=== PATIENT | male | born 1935 | race Caucasian/White ===

== ENCOUNTER 2017-02-24 14:28 | Emergency (ER) | payer MEDICARE ==
[2017-02-24] MEDS ORDERED: Aspirin Low Dose CHEW TAB* 81 MG PO ONE (15:26)
[2017-02-24] MEDS ORDERED: Labetalol IV* 5 MG/ML 20 ML VIAL IV PUSH ONE (15:26)
[2017-02-24 15:44] LABS: Hematocrit 44 % (42-52); Hemoglobin 14.3 g/dl (14.0-18.0); Mean Corpuscular HGB Conc 33 g/dl (31-36); Mean Corpuscular Hemoglobin 29 pg (27-31); Mean Corpuscular Volume 88 fL (80-94); Mean Platelet Volume 10 um3 (7.4-10.4); Red Blood Count 4.96 10^6/ul (4.0-5.4); Red Cell Distribution Width 14 % (10.5-15); White Blood Count 6.5 10^3/ul (3.5-10.8)
--- NOTE | 2017-02-24 16:02 | RAD ---
INDICATION: Hypertension. COMPARISON: Comparison is made with a prior chest x-ray study from October 04, 2015. TECHNIQUE: Dual-energy PA and lateral views of the chest were obtained. FINDINGS: The heart is within normal limits in size. Mediastinal and hilar contours appear within normal limits. The lungs are clear. There is flattening of the diaphragms suggestive of chronic obstructive pulmonary disease. No pleural effusion is seen. IMPRESSION: FINDINGS SUGGESTIVE OF COPD, NO EVIDENCE FOR ACUTE FINDING.
[2017-02-24 16:04] LABS: Troponin I 0.02 ng/mL (<0.04)
[2017-02-24 16:14] LABS: Albumin 3.9 g/dL (3.2-5.2); BUN/Creatinine Ratio 19.5 (8-20); Calcium 8.9 mg/dL (8.6-10.3); EGFR African American 108.3 (>60); EGFR Non-African American 84.2 (>60); Globulin 2.2 g/dL (2-4); Potassium 3.4 mmol/L (3.5-5.0); Total Bilirubin 0.7 mg/dL (0.2-1.0); Total Protein 6.1 g/dL (6.4-8.9)
[2017-02-24 16:16] LABS: TSH (Thyroid Stimulating Horm) 1.55 mcIU/mL (0.34-5.60)
[2017-02-24] MEDS ORDERED: Potassium Chlor TAB* 20 MEQ TAB.ER PO ONE (17:06)
[2017-02-24 17:07] VITALS: BP 154/68
--- NOTE | 2017-02-27 13:33 | ED ---
Soco Kenney Edward, scribed for Keyon Armendariz MD on 02/24/17 at 1520 . Hypertension - HPI Summary HPI Summary: 81 y/o male c/o elevated blood pressure - readings above 200 systolic per pt earlier today. Symptoms are not aggravated or alleviated by anything. Denies CP , SOB. Pt is asymptomatic in th ED. Pt also states he might be forgetting to take his HTN medications. - History of Current Complaint Chief Complaint: EDGeneral Stated Complaint: HIGH BLOOD PRESSURE Time Seen by Provider: 02/24/17 15:18 Hx Obtained From: Patient - Allergies/Home Medications Allergies/Adverse Reactions: Allergies Allergy/AdvReac Type Severity Reaction Status Date / Time No Known Allergies Allergy Verified 12/20/15 18:04 PMH/Surg Hx/FS Hx/Imm Hx Previously Healthy: No Endocrine/Hematology History: Denies: Hx Diabetes, Hx Thyroid Disease Cardiovascular History: Reports: Hx Hypercholesterolemia, Hx Hypertension - WELL CONTROLLED Denies: Hx Congestive Heart Failure Respiratory History: Denies: Hx Asthma, Hx Chronic Obstructive Pulmonary Disease (COPD) GI History: Reports: Hx Diverticulosis, Other GI Disorders - current GI bleed Denies: Hx Ulcer History: Denies: Hx Renal Disease Musculoskeletal History: Reports: Hx Arthritis - RIGHT THUMB Sensory History: Reports: Hx Cataracts - BILAT, Hx Contacts or Glasses, Hx Hearing Aid, Other Sensory Impairments - upper and lower dentures Opthamlomology History: Reports: Hx Cataracts - BILAT, Hx Contacts or Glasses, Other Sensory Impairments - upper and lower dentures - Surgical History Surgery Procedure, Year, and Place: cleft palate surgeries. TURP 2013. COLOVESICAL SURGERY S. 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 Denies: Hx Hepatitis, Hx Human Immunodeficiency Virus (HIV), Traveled Outside the [place] in Last 30 Days - Family History Known Family History: Negative: Cardiac Disease, Other - Negative: stroke and skin CA - Social History Alcohol Use: Daily Alcohol Amount: glass of wine/day Hx Substance Use: No Substance Use Type: Reports: None Hx Tobacco Use: Yes Smoking Status (MU): Former Smoker Length of Time of Smoking/Using Tobacco: 10 YRS Have You Smoked in the Last Year: No Review of Systems All Other Systems Reviewed And Are Negative: Yes Physical Exam - Summary Physical Exam Summary: VITAL SIGNS: Reviewed. GENERAL: Patient is a well-developed and nourished male who is lying comfortable in the stretcher. Patient is not in any acute respiratory distress. HEAD AND FACE: No signs of trauma. No ecchymosis, hematomas or skull depressions. No sinus tenderness. EYES: PERRLA, EOMI x 2, No injected conjunctiva, no nystagmus. EARS: Hearing grossly intact. Ear canals and tympanic membranes are within normal limits. MOUTH: Oropharynx within normal limits. NECK: Supple, trachea is midline, no adenopathy, no JVD, no carotid bruit, no c- spine tenderness, neck with full ROM. CHEST: Symmetric, no tenderness at palpation LUNGS: Clear to auscultation bilaterally. No wheezing or crackles. CVS: Regular rate and rhythm, S1 and S2 present, no murmurs or gallops appreciated. ABDOMEN: Soft, non-tender. No signs of distention. No rebound no guarding, and no masses palpated. Bowel sounds are normal. EXTREMITIES: FROM in all major joints, no edema, no cyanosis or clubbing. NEURO: Alert and oriented x 3. No acute neurological deficits. Speech is normal and follows commands. SKIN: Dry and warm Triage Information Reviewed: Yes Vital Signs On Initial Exam: Initial Vitals Temp Pulse Resp BP Pulse Ox 98.9 F 103 20 216/93 94 02/24/17 14:35 02/24/17 14:35 02/24/17 14:35 02/24/17 14:35 02/24/17 14:35 Vital Signs Reviewed: Yes - Will Coma Scale Coma Scale Total: 15 Diagnostics - Vital Signs Vital Signs Temp Pulse Resp BP Pulse Ox 02/24/17 15:13 210/88 02/24/17 14:35 98.9 F 103 20 216/93 94 - Laboratory Lab Results: Lab Results 02/24/17 02/24/17 02/24/17 Range/Units 15:22 15:22 15:22 WBC 6.5 (3.5-10.8) 10^3/ul RBC 4.96 (4.0-5.4) 10^6/ul Hgb 14.3 (14.0-18.0) g/dl Hct 44 (42-52) % MCV 88 (80-94) fL MCH 29 (27-31) pg MCHC 33 (31-36) g/dl RDW 14 (10.5-15) % Plt Count 178 (150-450) 10^3/ul MPV 10 (7.4-10.4) um3 Neut % (Auto) 72.5 (38-83) % Lymph % (Auto) 13.3 L (25-47) % Sutter % (Auto) 9.5 H (1-9) % Eos % (Auto) 3.5 (0-6) % Baso % (Auto) 1.2 (0-2) % Absolute Neuts (auto) 4.7 (1.5-7.7) 10^3/ul Absolute Lymphs (auto) 0.9 L (1.0-4.8) 10^3/ul Absolute Monos (auto) 0.6 (0-0.8) 10^3/ul Absolute Eos (auto) 0.2 (0-0.6) 10^3/ul Absolute Basos (auto) 0.1 (0-0.2) 10^3/ul Absolute Nucleated RBC 0 10^3/ul Nucleated RBC % 0 Sodium 142 (133-145) mmol/L Potassium 3.4 L (3.5-5.0) mmol/L Chloride 106 (101-111) mmol/L Carbon Dioxide 29 (22-32) mmol/L Anion Gap 7 (2-11) mmol/L BUN 17 (6-24) mg/dL Creatinine 0.87 (0.67-1.17) mg/dL Est GFR ( Amer) 108.3 (>60) Est GFR (Non-Af Amer) 84.2 (>60) BUN/Creatinine Ratio 19.5 (8-20) Glucose 194 H (70-100) mg/dL Lactic Acid (0.5-2.0) mmol/L Calcium 8.9 (8.6-10.3) mg/dL Total Bilirubin 0.70 (0.2-1.0) mg/dL AST 15 (13-39) U/L ALT 11 (7-52) U/L Alkaline Phosphatase 67 (34-104) U/L CK-MB (CK-2) 4.3 (0.6-6.3) ng/mL Troponin I 0.02 (<0.04) ng/mL B-Natriuretic Peptide 113 H ( - 100) pg/mL Total Protein 6.1 L (6.4-8.9) g/dL Albumin 3.9 (3.2-5.2) g/dL Globulin 2.2 (2-4) g/dL Albumin/Globulin Ratio 1.8 (1-3) TSH 1.55 (0.34-5.60) mcIU/mL 02/24/17 Range/Units 15:22 WBC (3.5-10.8) 10^3/ul RBC (4.0-5.4) 10^6/ul Hgb (14.0-18.0) g/dl Hct (42-52) % MCV (80-94) fL MCH (27-31) pg MCHC (31-36) g/dl RDW (10.5-15) % Plt Count (150-450) 10^3/ul MPV (7.4-10.4) um3 Neut % (Auto) (38-83) % Lymph % (Auto) (25-47) % Sutter % (Auto) (1-9) % Eos % (Auto) (0-6) % Baso % (Auto) (0-2) % Absolute Neuts (auto) (1.5-7.7) 10^3/ul Absolute Lymphs (auto) (1.0-4.8) 10^3/ul Absolute Monos (auto) (0-0.8) 10^3/ul Absolute Eos (auto) (0-0.6) 10^3/ul Absolute Basos (auto) (0-0.2) 10^3/ul Absolute Nucleated RBC 10^3/ul Nucleated RBC % Sodium (133-145) mmol/L Potassium (3.5-5.0) mmol/L Chloride (101-111) mmol/L Carbon Dioxide (22-32) mmol/L Anion Gap (2-11) mmol/L BUN (6-24) mg/dL Creatinine (0.67-1.17) mg/dL Est GFR ( Amer) (>60) Est GFR (Non-Af Amer) (>60) BUN/Creatinine Ratio (8-20) Glucose (70-100) mg/dL Lactic Acid 1.1 (0.5-2.0) mmol/L Calcium (8.6-10.3) mg/dL Total Bilirubin (0.2-1.0) mg/dL AST (13-39) U/L ALT (7-52) U/L Alkaline Phosphatase (34-104) U/L CK-MB (CK-2) (0.6-6.3) ng/mL Troponin I (<0.04) ng/mL B-Natriuretic Peptide ( - 100) pg/mL Total Protein (6.4-8.9) g/dL Albumin (3.2-5.2) g/dL Globulin (2-4) g/dL Albumin/Globulin Ratio (1-3) TSH (0.34-5.60) mcIU/mL Result Diagrams: 02/24/17 15:22 02/24/17 15:22 Lab Statement: Any lab studies that have been ordered have been reviewed, and results considered in the medical decision making process. - Radiology CXR Xray Interpretation: No Acute Changes - FINDINGS SUGGESTIVE OF COPD, NO EVIDENCE FOR ACUTE FINDING. Radiology Interpretation Completed By: Radiologist - EKG 1 EKG Interpretation: 15:34 - SR @ [address] ELEVATIONS Re-Evaluation - Re-Evaluation 1 Re-Evaluation Time: 16:34 Change: Improved Comment: discuss plan of care Hypertension Course/Dx - Course Assessment/Plan: 81 y/o male c/o elevated blood pressure - readings above 200 systolic per pt earlier today. Symptoms are not aggravated or alleviated by anything. Denies CP, SOB. Pt is asymptomatic in th ED. Pt also states he might be forgetting to take his HTN medications. EKG 15:34 - SR @ [address] ELEVATIONS. CXR SHOWS FINDINGS SUGGESTIVE OF COPD, NO EVIDENCE FOR ACUTE FINDING. Test results without significant abnormalities except potassium 3.4 for which the pt was given potassium chloride. Pt was given labetalol for uncontrolled hypertension. At this point the pts blood pressure was 162/81. The pt is otherwise asymptomatic. At this point I had a long discussion with the pt about compliance with medication. The pt will be d/c home with f/u with PCP. The pt is hemodynamically stable, A&Ox3. - Diagnoses Provider Diagnoses: Uncontrolled hypertension Discharge - Discharge Plan Condition: Stable Disposition: HOME Patient Education Materials: Hypertension (ED) Referrals: Gurdeep Ashton MD [Primary Care Provider] - 3 Days (PLEASE F/U IN 2-3 DAYS) The documentation as recorded by the kearaibSoco avila Edward accurately reflects the service I personally performed and the decisions made by me, Keyon Armendariz MD.
== END 2017-02-24 17:07 | disposition home or self-care (01) ==
LOC: ED 14:28
DX: I10 Essential (primary) hypertension (principal); E78.00 Pure hypercholesterolemia, unspecified; K57.90 Diverticulosis of intestine, part unspecified, without perforation or abscess without bleeding; M19.041 Primary osteoarthritis, right hand; Z87.891 Personal history of nicotine dependence
CPT/HCPCS: 36415; 71020; 80053; 82553; 83605; 83880; 84443; 84484; 85025; 93005; 96374; 99283; A9270-GY

== ENCOUNTER 2018-03-12 08:17 | Emergency (ER) | payer MEDICARE ==
[2018-03-12] MEDS ORDERED: NS 0.9% 1000 ML* 1,000 ML IV ONE (08:18)
--- NOTE | 2018-03-12 08:39 | RAD ---
HISTORY: Neurological changes/code oswald COMPARISONS: None TECHNIQUE: Multiple contiguous axial CT scans were obtained of the head without intravenous contrast. FINDINGS: HEMORRHAGE/INFARCT: There is no hemorrhage or acute infarct. MASSES/SHIFT: There is no mass or shift. EXTRA-AXIAL SPACES: There are no extra-axial fluid collections. SULCI AND VENTRICLES: There is diffuse and proportional enlargement of the sulci and ventricles. CEREBRUM: There is hypoattenuation of the periventricular and subcortical white matter. BRAINSTEM: There are no focal parenchymal abnormalities. CEREBELLUM: There is desiccation of the deep nuclei of the cerebellum. VESSELS: The vessels are grossly normal. PARANASAL SINUSES: The paranasal sinuses are clear. ORBITS: There is bilateral proptosis. BONES AND SOFT TISSUE: No bone or soft tissue abnormalities are noted. OTHER: None IMPRESSION: 1. NO ACUTE INTRACRANIAL PATHOLOGY. 2. DIFFUSE INVOLUTIONAL CHANGE WITH CHRONIC SMALL VESSEL ISCHEMIC CHANGES. 3. CALCIFICATION OF THE DEEP NUCLEI OF THE CEREBELLUM WHICH CAN BE SEEN WITH DISORDERS OF CALCIUM METABOLISM. 4. BILATERAL PROPTOSIS. PRELIMINARY FINDINGS WERE DISCUSSED WITH DR. CHACON IN THE EMERGENCY DEPARTMENT AT APPROXIMATELY 8:28 AM ON MARCH 12, 2018 .
[2018-03-12] MEDS ORDERED: Metoprolol Tartrate IV* 1 MG/ML 5 ML VIAL IV ONE (08:40)
--- NOTE | 2018-03-12 08:51 | ED ---
Neurological HPI - HPI Summary HPI Summary: Pt is an 82 y/o male brought in by EMS who presents to the ED c/o slurred speech , confusion and fall this am witnessed by [id number], Aury Caro who lives with pt, and is pt's closest relative and she called EMS. As per EMS, his last known well was 22:00 yesterday. Pt c/o right facial droop, R arm drift, confusion, and slurred speech. He fell while in the bathroom, and EMS was called 30 minutes DEBURRER STRIP. Layne De La Paz was called in the fiel. Vitals as per EMS: BP 215/143, HR 136. An EKG performed by EMS revealed AFib, and he was given 5 mg Metoprolol IV by EMS. Pt is on Rampril 20mg qd, [id number] qd, Donepezil 10mg qd Layne Restrepo was called at 8:06. Pt is not on anticoagulants or ASA. No known hx prior stroke. No known prior hx of afib. [facility] records show hx HTN and hyperlipidemia. No med for hyperlipidemia brought in by family with daily meds. Per Aurypilar Caro, pt is a full code. Pt was evaluated on EMS stretcher and taken directly to CT. CT and CTA done immediately. - History of Current Complaint Stated Complaint: LAYNE DE LA PAZ Time Seen by Provider: 03/12/18 08:18 Hx Obtained From: Patient, Family/Mineral Economist - Aury Caro, [id number] who lives with pt., EMS Onset/Duration: Sudden Onset, Started hours ago - LKW 2200 03/11/18, Still Present Timing: Constant Onset Severity: Severe Current Severity: Severe Neurological Deficit Location: Facial, RUE, RLE Pain Intensity: 0 Pain Scale Used: 0-10 Numeric Character: Motor Weakness - right, Impaired Speech, Confusion, Responsiveness Aggravating: Nothing Alleviating: Nothing Associated Signs and Symptoms: Positive: Unsteady Gait - fell this am, Confusion , Impaired Speech TPA Considered: No - LKW out of window - Additional Pertinent History Primary Care Physician: ANDREW - Allergy/Home Medications Allergies/Adverse Reactions: Allergies Allergy/AdvReac Type Severity Reaction Status Date / Time No Known Allergies Allergy Verified 12/20/15 18:04 PMH/Surg Hx/FS Hx/Imm Hx Previously Healthy: No Endocrine/Hematology History: Denies: Hx Diabetes, Hx Thyroid Disease Cardiovascular History: Reports: Hx Hypercholesterolemia, Hx Hypertension - WELL CONTROLLED Denies: Hx Congestive Heart Failure Respiratory History: Denies: Hx Asthma, Hx Chronic Obstructive Pulmonary Disease (COPD) GI History: Reports: Hx Diverticulosis, Hx Gastrointestinal Bleed Denies: Hx Ulcer History: Denies: Hx Renal Disease Musculoskeletal History: Reports: Hx Arthritis - RIGHT THUMB Sensory History: Reports: Hx Cataracts - BILAT, Hx Contacts or Glasses, Hx Hearing Aid - with pt , Other Sensory Impairments - upper and lower dentures Opthamlomology History: Reports: Hx Cataracts - BILAT, Hx Contacts or Glasses, Other Sensory Impairments - upper and lower dentures Neurological History: Denies: Hx CVA, Hx Seizures - Cancer History Cancer Type, Location and Year: no - Surgical History Surgery Procedure, Year, and Place: cleft palate surgeries. TURP 2013. COLOVESICAL SURGERY 1959'. 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 Denies: Hx Hepatitis, Hx Human Immunodeficiency Virus (HIV), Traveled Outside the [place] in Last 30 Days - Family History Known Family History: Negative: Cardiac Disease, Other - Negative: stroke and skin CA - Social History Lives: With Family - sister in law Alcohol Use: Daily Alcohol Amount: glass of wine/day Hx Substance Use: No Substance Use Type: Reports: None Hx Tobacco Use: Yes Smoking Status (MU): Former Smoker Length of Time of Smoking/Using Tobacco: 10 YRS Have You Smoked in the Last Year: No Review of Systems Negative: Fever Cardiovascular: Negative Respiratory: Negative Gastrointestinal: Negative Skin: Negative Positive: Slurred Speech Psychological: Normal All Other Systems Reviewed And Are Negative: Yes Physical Exam - Summary Physical Exam Summary: Appearance: ill-appearing, no pain distress, well-nourished, aphasic Skin: Warm, color reflects adequate perfusion, dry Head: Normal Head/Face inspection, atraumatic Eyes: Conjunctiva clear, exophthalmic ENT: Normal inspection, mucosa moist Neck: Supple, no nodes, no JVD, no bruits Respiratory: Lungs clear, normal breath sounds, no respiratory distress Cardio: RRR, No murmur, pulses normal, brisk capillary refill Abdomen: Soft, nontender, nondistended, no masses Bowel sounds: Present Musculoskeletal: no calf tenderness, no edema. Psychological: aphasic, calm, cooperative Neuro: See NIH scale, 19 GCS: 14 Triage Information Reviewed: Yes Vital Signs Reviewed: Yes Diagnostics - Laboratory Result Diagrams: 03/12/18 08:47 03/12/18 08:47 Lab Statement: Any lab studies that have been ordered have been reviewed, and results considered in the medical decision making process. - Radiology CXR Radiology Interpretation Completed By: Radiologist - CARDIOMEGALY WITH PULMONARY INTERSTITIAL EDEMA. ED physician reviewed radiology report. - CT Head CTA CT Interpretation Completed By: Radiologist - 1. SHORT SEGMENT LEFT MCA OCCLUSION OF THE M1 SEGMENT. THERE IS RECONSTITUTION OF THE DISTAL M1 SEGMENT WHICH APPEARS SOMEWHAT IRREGULAR AND NARROWED WHICH MAY INDICATE UNDERLYING STENOSIS. 2. ASPECTS SCORE OF 9. COLLATERAL SCORE OF 1. 3. 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 4. BILATERAL PLEURAL EFFUSIONS WITH PERICARDIAL EFFUSION. 5. PRELIMINARY FINDINGS WERE DISCUSSED WITH DR. RIOJAS AT APPROXIMATELY 8:44 AM ON MARCH 12, 2018. ED physicain reviewed radiology report. Brain CT CT Interpretation Completed By: Radiologist - 1. NO ACUTE INTRACRANIAL PATHOLOGY. 2. DIFFUSE INVOLUTIONAL CHANGE WITH CHRONIC SMALL VESSEL ISCHEMIC CHANGES. 3. CALCIFICATION OF THE DEEP NUCLEI OF THE CEREBELLUM WHICH CAN BE SEEN WITH DISORDERS OF CALCIUM METABOLISM. 4. BILATERAL PROPTOSIS. ED physician reviewed radiology report. - EKG 08:40 Cardiac Rate: Tachycardia - 110 bpm EKG Rhythm: Atrial Fibrillation EKG Comparison: Other - 02/24/17 Now in AFib. Summary of EKG Findings: No acute changes. NIH Scale - NIH Scale Level of Consciousness: Alert/Keenly Responsive Ask Patient the Month and His/Her Age: Neither Correct/Aphasic Ask Pt to Open/Close Eyes and Hooker Laster/Release Non-Paretic Hand: Neither Correctly Best Gaze (Only Horizontal Eye Movement): Partial Gaze Palsy Visual Field Testing: No Visual Loss Facial Paresis-Pt to Smile & Close Eyes or Grimace Symmetry: Complete Paralysis Motor Function - Right Arm: Effort Against Jackson Motor Function - Left Arm: No Drift-Holds 10 Seconds Motor Function - Right Leg: Effort Against Jackson Motor Function - Left Leg: No Drift-Holds 10 Seconds Limb Ataxia-Must be out of Proportion to Weakness Present: Present in One Limb Sensory (Use Pinprick to Test Arms/Legs/Trunk/Face): Pinprick Less on Affected Best Language (Describe Picture, Name Items): Severe Aphasia Dysarthria (Read Several Words): Unintelligible or Mute Extinction and Inattention: Inattention Total Score: 19 Re-Evaluation - Re-Evaluation First Eval Re-Evaluation Time: 08:20 Change: Unchanged Course/Dx - Course Course Of Treatment: Pt is an 82 y/o male brought in by EMS who presents to the ED c/o slurred speech, right motor weakness and fall this am. As per EMS, his last known well was 22:00 03/11/18. Pt noted with right facial droop, arm drift , confusion, and slurred speech. He fell while in the bathroom, and EMS was called 30 minutes DEBURRER STRIP. Vitals as per EMS: BP 215/143, HR 136. An EKG performed by EMS revealed AFib, and he was given 5 mg Metoprolol IV. Pt is on Rampril, Oxybutynin, Donepezil. Code Lauro was called at 8:06. At 8:42 BP is 185/150. Auto launch code LBO at 8:36. In the room at 8:16. Code Restrepo orders put in at 8: 19. Dr. Riojas in CT room at 8:22. At 8:43 spoke to Rosalina at the transfer center. Reports of CT and CTA by Dr. Mckinley. Code LVO protocol. Acceptance [address] Donis. ED to ED, helicopter. Helicopter present 912. - Diagnoses Provider Diagnoses: Left middle cerebral artery stroke During the Visit The Following Alert/Code Occurred: Code Restrepo - Called at 8:06 Discharge - Sign-Out/Discharge Documenting (check all that apply): Patient Departure - Transfer - Discharge Plan Condition: Stable Disposition: TRANS HIGHER LVL OF CARE FAC Referrals: Gurdeep Ashton MD [Primary Care Provider] - - Billing Disposition and Condition Condition: STABLE Disposition: Trans Higher Lvl of Care Fac - Attestation Statements Document Initiated by Scribe: Yes Documenting Scribe: Yue Sinha Provider For Whom Scribe is Documenting (Include Credential): Laurita Edgar MD Scribe Attestation: Yue Kenney, scribed for Laurita Edgar MD on 03/12/18 at 0923. Scribe Documentation Reviewed: Yes Provider Attestation: The documentation as recorded by the scribeYue accurately reflects the service I personally performed and the decisions made by me, Laurita Edgar MD
[2018-03-12 08:55] LABS: ABS Basophils 0.1 10^3/ul (0-0.2); ABS Eosinophils 0.1 10^3/ul (0-0.6); ABS Lymphocytes 0.9 10^3/ul (1.0-4.8); ABS Monocytes 0.7 10^3/ul (0-0.8); ABS Neutrophils 5.9 10^3/ul (1.5-7.7); ABS Nucleated RBC 0 10^3/ul; Eosinophil % 1.4 % (0-6); Hematocrit 45 % (42-52); Hemoglobin 14.7 g/dl (14.0-18.0); Lymphocyte % 11.4 % (25-47); Mean Corpuscular HGB Conc 33 g/dl (31-36); Mean Corpuscular Hemoglobin 29 pg (27-31); Mean Corpuscular Volume 88 fL (80-94); Mean Platelet Volume 10.1 um3 (7.4-10.4); Nucleated Red Blood Cells % 0.1; Platelet Count 159 10^3/ul (150-450); Red Blood Count 5.08 10^6/ul (4.00-5.40); Red Cell Distribution Width 14 % (10.5-15); White Blood Count 7.7 10^3/ul (3.5-10.8)
[2018-03-12] MEDS ORDERED: niCARdipine 0.1MG/ML IVPREMIX* 20 MG/200 ML BAG IV ONE (08:59)
--- NOTE | 2018-03-12 09:04 | RAD ---
HISTORY: Neurological Changes/Code De La Paz COMPARISONS: February 24, 2017 VIEWS: 1: frontal AP view of the chest at 8:50 AM FINDINGS: LINES AND TUBES: None. CARDIOMEDIASTINAL SILHOUETTE: The cardiac silhouette is mildly enlarged. The cardiomediastinal silhouette is otherwise normal for portable technique. PLEURA: The costophrenic angles are sharp. No pleural abnormalities are noted. LUNG PARENCHYMA: There is a diffuse reticular pattern with indistinct pulmonary vessels. ABDOMEN: The upper abdomen is clear. There is no subphrenic gas. BONES AND SOFT TISSUES: No bone or soft tissue abnormalities are noted. IMPRESSION: CARDIOMEGALY WITH PULMONARY INTERSTITIAL EDEMA.
--- NOTE | 2018-03-12 09:13 | CONSULT ---
Consult Consult: Acute left LVO in the M1 segment. Contacted UR and patient will be transported via air. Last known well was on 03/11/2018 at 2200. Patient was noted to have falls today at [address] head no evidence of ICH or acute ischemic infarction. CTA head and neck: calcification in bilateral ICA near the bifurcation L worse than right. He has M1 cutoff on the left. Confirmed by Dr. Mckinley. ASPECT score: 8-9 Telemetry: atrial fibrillation with HR in the low 100's. He has no history of Afib. BP goal: 160-<220/90-<120 mmHg. Started Nicardipine gtt to titrate to that BP Keep patient in supine position to allow for cerebral perfusion Spoke to Joel from Radiology to [facility]. Spoke with Family, Mrs. Caro ([id number]) who lives with the patient. I discussed the urgency of the transfer with the patient and Mrs. Caro. They both agree for the transfer and to undergo any required procedure. Consult note dictated. Bronson Kruse
[2018-03-12 09:16] LABS: INR 1.04 (0.77-1.02)
--- NOTE | 2018-03-12 09:17 | RAD ---
HISTORY: right facial droop,aphasia,confusion COMPARISONS: None TECHNIQUE: Multiple contiguous axial CT scans were obtained of the head and neck after the administration of nonionic intravenous contrast timed to the systemic arterial phase of contrast enhancement. Coronal and sagittal multiplanar reformations are submitted for review. Multiple 3-D maximum intensity projection reconstructions are also submitted for review. FINDINGS: CTA NECK: Evaluation is limited by suboptimal contrast opacification. AORTIC ARCH: There is calcific atherosclerotic disease of the aortic arch, without ostial or proximal stenosis of the cephalic great vessels. There is a normal three-vessel branching pattern. RIGHT VERTEBRAL ARTERY: The right vertebral artery is patent along its course, without stenosis. LEFT VERTEBRAL ARTERY: The left vertebral artery is patent along its course, without stenosis. DOMINANCE: The left vertebral artery is dominant. RIGHT COMMON CAROTID ARTERY: The right common carotid artery is patent. The right carotid bifurcation occurs at C4-C5 RIGHT INTERNAL CAROTID ARTERY: There is atheromatous disease of the right carotid bifurcation, without right internal carotid artery stenosis by NASCET criteria. RIGHT EXTERNAL CAROTID ARTERY: The right external carotid artery is unremarkable. LEFT COMMON CAROTID ARTERY: The left common carotid artery is patent. The left carotid bifurcation occurs at C3-C4 LEFT INTERNAL CAROTID ARTERY: There is atheromatous disease of the left carotid bifurcation, without left internal carotid artery stenosis by NASCET criteria. LEFT EXTERNAL CAROTID ARTERY: The left external carotid artery is unremarkable. VENOUS CIRCULATION: The venous system is unremarkable. SALIVARY GLANDS: The parotid glands, submandibular glands, sublingual glands are normal. NASAL CAVITY/NASOPHARYNX: The nasal cavity and nasopharynx are normal. ORAL CAVITY/OROPHARYNX: The oral cavity is obscured by streak artifact from dental amalgam. The visualized oral cavity and oropharynx are unremarkable. LARYNGEAL APPARATUS/HYPOPHARYNX: The laryngeal apparatus and hypopharynx are normal. UPPER AIRWAY/UPPER ESOPHAGUS: The visualized upper airway and esophagus are normal. LUNG APICES: There are moderate bilateral pleural effusions. There is a moderate pericardial effusion with fluid in the superior pericardial recess. THYROID GLAND: The thyroid gland is normal. LYMPH NODES: There is no lymphadenopathy by size criteria. BONES AND SOFT TISSUES: Degenerative changes are noted. CTA HEAD: INTRACRANIAL CIRCULATION: There is loss of enhancement within the mid M1 segment of the left middle cerebral artery. There is partial reconstitution of the distal M1 segment, which appears somewhat irregular and narrowed. Elsewhere, there is no aneurysm, vascular formation, occlusion, or stenosis of the intracranial circulation, the left ICA terminus is somewhat dysplastic.. There is calcification of the cavernous segments of internal carotid arteries bilaterally. The collateral flow is less than 50% of the contralateral MCA territory. The anterior communicating artery complex is clear. Bilateral posterior communicating arteries are identified. VENOUS CIRCULATION: The venous system is unremarkable. PERFUSION: There is no obvious parenchymal perfusion deficit. HEMORRHAGE/INFARCT: There is no hemorrhage or acute infarct. MASSES/SHIFT: There is no mass or shift. EXTRA-AXIAL SPACES: There are no extra-axial fluid collections. SULCI AND VENTRICLES: There is diffuse and proportional enlargement of the sulci and ventricles. CEREBRUM: There is hypoattenuation of the periventricular and subcortical white matter. There is loss of oswald-white differentiation along the anterior insula. BRAINSTEM: There are no focal parenchymal abnormalities. CEREBELLUM: Again noted is calcification of the deep nuclei of the cerebellum. PARANASAL SINUSES: The paranasal sinuses are clear. ORBITS: There is bilateral proptosis. BONES AND SOFT TISSUE: No bone or soft tissue abnormalities are noted. OTHER: There is no abnormal enhancement. ASPECTS Score: Caudate: Normal -- 1 Lentiform Nuclei: Normal -- 1 Internal Capsule: Loss of dumont-white definition -- 0 Insula: Normal -- 1 M1 -- Frontal Operculum: Normal -- 1 M2 -- Anterior Temporal Lobe: Normal -- 1 M3 -- Posterior Temporal Lobe: Normal -- 1 M4 -- Anterior MCA Territory: Normal -- 1 M5 -- Lateral MCA Territory: Normal -- 1 M6 -- Posterior MCA Territory: Normal -- 1 TOTAL: 9 IMPRESSION: 1. SHORT SEGMENT LEFT MCA OCCLUSION OF THE M1 SEGMENT. THERE IS RECONSTITUTION OF THE DISTAL M1 SEGMENT WHICH APPEARS SOMEWHAT IRREGULAR AND NARROWED WHICH MAY INDICATE UNDERLYING STENOSIS. 2. ASPECTS SCORE OF 9. COLLATERAL SCORE OF 1. 3. 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 4. BILATERAL PLEURAL EFFUSIONS WITH PERICARDIAL EFFUSION. 5. PRELIMINARY FINDINGS WERE DISCUSSED WITH DR. RIOJAS AT APPROXIMATELY 8:44 AM ON MARCH 12, 2018 CPT II Codes: 3100F
[2018-03-12 09:21] LABS: EGFR Non-African American 68.4 (>60)
[2018-03-12] MEDS ORDERED: niCARdipine 0.1MG/ML IVPREMIX* 20 MG/200 ML BAG IV SCH (10:00)
[2018-03-12 10:12] VITALS: BP 164/118
--- NOTE | 2018-03-12 11:44 | CONS ---
NEUROLOGY CONSULTATION REPORT: DATE OF CONSULT: 03/12/18 - EMERGENCY DEPT CONSULTING PROVIDER: Laurita Edgar MD REASON FOR CONSULT: Activated [facility] to assess the patient for acute stroke. CHIEF COMPLAINT: Falls. HISTORY OF PRESENT ILLNESS: Mr. Esteban Lara is an 82-year-old man who is a retired [employer] employee, who has a history of hypertension and dyslipidemia, who was found to have frequent falls this morning. The patient's last known well was 2200 last night. The patient's hhrtuk-[id number], Mrs. Caro lives with him and is his closest relative. She stated that the patient's last known well was 2200 on 03/11/18. The patient woke up around 7 a.m. trying to go to the bathroom and she heard him fall. He was able to get up, drag himself to the bathroom but then fell again. He did not lose consciousness. He has no evidence of head trauma but he is unable to communicate that. EMS was immediately contacted and noticed that the patient has right facial droop, right hemiparesis, inability to communicate. He was rushed to the ER. [facility] De La [facility] was activated at 8:06 a.m. with an estimated arrival time at 8:10 a.m. He was seen by us at 8:15 a.m. The patient was noticed to have a level of consciousness +2, repeated stimulation to arouse, he was able to answer 1 question correctly, he performed 1 task correctly, he has partial gaze palsy that can be overcome, he has partial hemianopsia on the right, he has right partial paralysis, he had no drift on the left arm but some effort against gravity +2 on the right arm, he had no drift on the left leg but he had no effort against gravity on the right leg +3, he has limb ataxia in the right arm , he has bhjr-hh-ttvyzeof loss of sensation on the right side by testing cold temperature, the patient did not startle or move away as he did on the left, he has severe aphasia with fragmentary expression, inference needed, cannot identify material +2. He has severe dysarthria, unintelligible slurring or out of proportion to dysphasia, and he has extinction to bilateral stimulation on the right. This puts his NIH stroke scale as 20. CT of head was completed and showed no evidence of an acute infarction. He has bilateral cerebellum and basal ganglia calcification. A CTA head and neck was obtained. There was diffuse calcification in the carotid bifurcation left worse than right with high-grade stenosis in the left carotid. There was also a cutoff in the left M1 segment of the middle cerebral artery. I confirmed these findings with Dr. Mckinley. A final report of the CTA is not available. On the electrocardiogram, there is evidence of atrial fibrillation. The patient has no history of atrial fibrillation in the past. His ventricular rate is between 82 to 120. Upon arrival, the patient's blood pressure was extremely high with systolic averaging in the 200s and diastolic in the 130s and 140s. He received 2 doses of IV metoprolol with no significant improvement in his blood pressure. He was placed on nicardipine drip with blood pressure parameters of keeping the systolic between 160 to less than 220 by reducing the diastolic to 90s - less than 120. Auto launch was launched at 8:40. We contacted [facility] vascular team and we discussed the case around 9 o'clock. PAST MEDICAL HISTORY: Hypertension, dyslipidemia, history of bee stings. He did have a hospitalization in the emergency room in 2017 for elevated blood pressure. The patient reported that he tends to forget taking his blood pressure medication at that time. The patient has a history of hearing loss and recently had new hearing aids. 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 MEDICATIONS: 1. Verapamil 240 mg p.o. daily. 2. Oxybutynin 10 mg at night. 3. Lipitor 10 mg p.o. at night. ALLERGIES: No known drug allergies. He is allergic to bee stings. REVIEW OF SYSTEMS: The patient cannot participate in review of systems due to severe aphasia. PHYSICAL EXAM: Vitals: Temperature 97.4, pulse rate 111, respiratory rate of 22, oxygen saturation of 97%, blood pressure of 190/132. General: Well- nourished, well-developed man in no acute distress. He has severe expressive aphasia. Head: Normocephalic, atraumatic. Eyes: Conjunctivae/corneas are clear. Neck is supple and symmetrical. No carotid bruits. Lungs: Mild respiratory and expiratory wheezing. Cardiovascular: Irregular rhythm and irregular rate. No murmurs. Extremities: Normal range of motion. No cyanosis. Skin: No skin lesions or lacerations. Psych: Affect is broad and appears to have a normal mood. Neurological Examination: The patient is awake. He is alert to self but not place or time. He has ygenzjwh-lc-dxzyvk expressive with some receptive aphasia and spastic dysarthria. Cranial Nerves: Right hemianopsia. Pupils are mid range and reactive to light. He has some visual neglect but able to overcome to the right side. Sensation is intact in the forehead, cheeks, and jaw on the left but reduced on the right. Right facial droop. He is hard of hearing and wears hearing aids. Tongue is symmetrical and midline. Motor Examination: Right hemiparesis with right pronator drift. He is unable to elevate the right leg. He is able to elevate the right arm but cannot keep it up against resistance. 5/5 strength in the left upper and lower extremities. Reflexes: Right/left: Brachioradialis 1/ trace, biceps 2/1, triceps 2/1, patella 1/trace, ankle 0/ankle plantar or extensor/flexor. Sensation is intact to light touch on the left, but he does not seem to move with cold temperature on the right. Coordination: Motor dysmetria on the right. Gait and station were not assessed. LABORATORY DATA: WBC of 7.7, hemoglobin of 14.7, hematocrit 45, platelet count 159,000. INR of 1.04, aPTT 30. Sodium was 142, potassium was 3.3, chloride of 107, carbon dioxide of 28, BUN 20, creatinine was 1.04, glucose 147, lactic acid 1.3. AST 14, ALT 23. HDL of 35, LDL of 115, cholesterol of 164, triglycerides of 70. IMAGING STUDIES: As described in the HPI. 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 The patient is not a candidate for IV tPA due to being outside the therapeutic window given his last known well was last night before going to sleep. This is a wake-up stroke. The patient will be air flighted to the [facility] for evaluation of mechanical thrombectomy. I discussed the case with Dr. Cai who accepted the patient. Please note that the patient's closest relative is Mrs. Caro. She is willing to give consent. The patient does have a sister who he does not communicate with at all and who does not live nearby. Please call Mrs. Caro at [phone] for further information. We discussed blood pressure parameters. The patient's blood pressures should be kept permissive with systolic blood pressure between 160 to less than 220 and diastolic between 90 to less than 120. He was started on nicardipine drip with those recommended parameters. Keep the patient n.p.o. Proceed with aspirin 300 mg suppository x1. If not yet obtained, this can be done at the outside facility since he is getting ready to leave. The patient will need long- term anticoagulation therapy for atrial fibrillation. I do not recommend starting anticoagulation therapy at this time given the large vessel occlusion as well as the anticipated large cerebral infarction. Neuro checks every hour. He will eventually need a bedside swallow evaluation, PT/OT/OCEANOLOGIST evaluation and treatment. TIME SPENT: I spent a total of 60 minutes of critical care time and greater than 50% was spent directly reviewing the medical chart, obtaining history, examining the patient, interpreting the CT and CTA head results, working with Dr. Edgar in the acute stroke evaluation, education and counseling, and discussing the treatment plan with the patient and Mrs. Caro at bedside. [id number]/[facility] #: [id number] [facility]
== END 2018-03-12 09:37 | disposition short-term general hospital (02) ==
LOC: ED 08:17
DX: I63.89 Other cerebral infarction (principal); R47.01 Aphasia; G83.21 Monoplegia of upper limb affecting right dominant side; R29.810 Facial weakness; R41.0 Disorientation, unspecified; I48.91 Unspecified atrial fibrillation; Z87.891 Personal history of nicotine dependence; I10 Essential (primary) hypertension; E78.00 Pure hypercholesterolemia, unspecified; E78.5 Hyperlipidemia, unspecified; H91.90 Unspecified hearing loss, unspecified ear
CPT/HCPCS: 36415; 70450; 70496; 70498; 71045; 80053; 80061; 83605; 84484; 85025; 85610; 85730; 86850; 86900; 86901; 93005; 96361; 96374; 96375; 99285; J3490; Q9967

== ENCOUNTER 2018-07-31 09:00 | Inpatient (IN) | payer MEDICARE ==
--- NOTE | 2018-07-31 09:22 | ED ---
Shortness of Breath - HPI Summary HPI Summary: This pt is an 83 y/o male presenting to [facility] via EMS from [facility] for difficulty breathing today. Staff reports woke up this morning with difficulty breathing. Pt was given one Duoneb at [facility] without much relief. EMS administered a second Duoneb [employer] PROGRAM CONSULTANT with mild relief. EMS also placed pt on supplemental oxygen. Pt with dementia and unable to give much history. MAR reviewed and pt did not take any medications today. Pt with wheezing and cough. Pt denies any pain. Pt is normally on room air at [facility] and does not use supplemental oxygen. Pt without h/o lung dx Pt is unable to state his date of , location, or the president. Pt has MOLST form and is a DNR/DNI. Pt is comfort measures only with no IV. Abx ok Will contact HCP - noted Aury Vania in records/MOLST Patient medication reviewed this visit. HPI IS LIMITED DUE TO LEVEL 5 CAVEAT - pt not oriented - History of Current Complaint Time Seen by Provider: 07/31/18 09:06 Hx Obtained From: Patient - limited, Family/Interior Design Coordinator, Medical Records Hx From Patient Unobtainable Due To: Other - Level 5 caveat - pt not oriented Onset/Duration: Lasting Hours, Still Present Timing: Constant Dyspnea At: Rest Aggrevating Factors: Nothing Alleviating Factors: Oxygen Associated Signs & Symptoms: Wheezing - Allergy/Home Medications Allergies/Adverse Reactions: Allergies Allergy/AdvReac Type Severity Reaction Status Date / Time No Known Allergies Allergy Verified 07/31/18 10:00 Home Medications: Home Medications Acetaminophen TAB* [Tylenol TAB*] 650 mg PO Q4H PRN 07/31/18 [History Confirmed 07/31/18] Albuterol/Ipratropium NEB.DIGNA* [Duoneb (Albuterol 2.5 MG/Ipratropium 0.5 MG)] 1 neb INH Q4H PRN 07/31/18 [History Confirmed 07/31/18] Digoxin TAB* [Lanoxin TAB*] 0.0625 mg PO DAILY 07/31/18 [History Confirmed 07/31] Donepezil HCl [Aricept] 10 mg PO DAILY 07/31/18 [History Confirmed 07/31/18] Doxazosin Mesylate 4 mg PO BEDTIME 07/31/18 [History Confirmed 07/31/18] Lisinopril TAB* [Prinivil TAB*] 20 mg PO DAILY 07/31/18 [History Confirmed 07/31] Magnesium Oxide TAB* [MagOx 400 TAB*] 400 mg PO DAILY 07/31/18 [History Confirmed 07/31/18] Metoprolol Tartrate TAB* [Lopressor TAB*] 50 mg PO BID 07/31/18 [History Confirmed 07/31/18] Potassium Chloride LIQUID* [Klor-Con LIQUID*] 20 meq PO DAILY 07/31/18 [History Confirmed 07/31/18] Rivaroxaban TAB(*) [Xarelto 20 mg] 20 mg PO DAILY 07/31/18 [History Confirmed ] Sennosides 8.6 mg PO DAILY 07/31/18 [History Confirmed 07/31/18] Simvastatin [Zocor] 20 mg PO DAILY 07/31/18 [History Confirmed 07/31/18] guaiFENesin LIQ* [Robitussin*] 10 ml PO Q6HR PRN 07/31/18 [History Confirmed ] PMH/Surg Hx/FS Hx/Imm Hx Previously Healthy: No Endocrine/Hematology History: Reports: Hx Anticoagulant Therapy Denies: Hx Diabetes, Hx Thyroid Disease Cardiovascular History: Reports: Hx Hypercholesterolemia, Hx Hypertension - WELL CONTROLLED Denies: Hx Congestive Heart Failure Respiratory History: Denies: Hx Asthma, Hx Chronic Obstructive Pulmonary Disease (COPD) GI History: Reports: Hx Diverticulosis, Hx Gastrointestinal Bleed, Other GI Disorders - current GI bleed Denies: Hx Ulcer History: Denies: Hx Renal Disease Musculoskeletal History: Reports: Hx Arthritis - RIGHT THUMB Sensory History: Reports: Hx Cataracts - BILAT, Hx Contacts or Glasses, Hx Hearing Aid - with pt , Other Sensory Impairments - upper and lower dentures Opthamlomology History: Reports: Hx Cataracts - BILAT, Hx Contacts or Glasses, Other Sensory Impairments - upper and lower dentures Neurological History: Reports: Hx CVA - February 2018 Denies: Hx Seizures - Cancer History Cancer Type, Location and Year: no - Surgical History Surgery Procedure, Year, and Place: cleft palate surgeries. TURP 2013. COLOVESICAL SURGERY 1959'S. 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 Denies: Hx Hepatitis, Hx Human Immunodeficiency Virus (HIV) - Family History Known Family History: Positive: Unknown - pt not oriented - level 5 caveat Negative: Cardiac Disease, Other - Negative: stroke and skin CA - Social History Alcohol Use: Daily Alcohol Amount: glass of wine/day Hx Substance Use: No Substance Use Type: Reports: None Hx Tobacco Use: Yes Smoking Status (MU): Former Smoker Length of Time of Smoking/Using Tobacco: 10 YRS Have You Smoked in the Last Year: No Review of Systems - ROS Summary Review of Systems Summary: ROS IS LIMITED DUE TO LEVEL 5 CAVEAT - pt is not oriented Negative: Fever Respiratory: Other - POSITIVE: wheezing Positive: Shortness Of Breath, Cough Negative: Other - NEGATIVE: pt denies any pain All Other Systems Reviewed And Are Negative: No Physical Exam - Summary Physical Exam Summary: Vital Signs Reviewed: Yes alert- not oriented,unable to give hx Eyes: Conjunctiva Clear, FLAKO. EOM intact and full ENT: Hearing grossly normal mmoist, Neck: Positive: Supple Respiratory: Positive: mild exp wheeze, no cough + BS throughout - scattered wheeze Cardiovascular: RRR nl s1, s2 no m/r CBT <2 sec abd soft + BS nt/nd no guarding, no distension Musculoskeletal Exam: LEIGH x 4 without difficulty Strength Intact, ROM Intact Neurological: Positive: Alert, + sensation throughout Psychological: Positive: Normal Response To Family Skin: Positive: no rash, no ecchymos Triage Information Reviewed: Yes Diagnostics - Laboratory Result Diagrams: 07/31/18 12:49 07/31/18 12:49 Lab Statement: Any lab studies that have been ordered have been reviewed, and results considered in the medical decision making process. - Radiology Chest XR Radiology Interpretation Completed By: Radiologist Summary of Radiographic Findings: IMPRESSION: Low lung volumes. Patchy right basilar atelectasis versus consolidation. Dr. Ortega has reviewed this report. Re-Evaluation - Re-Evaluation First Eval Re-Evaluation Time: 09:43 Comment: Phone number for health care proxy, Aury Caro, is no longer in service as listed on paperwork from [employer] Second Eval Re-Evaluation Time: 09:48 Comment: Pt will be given blood pressure medications, will obtain CXR and flu swabs, per MOLST guidelines. If he decompensates we will try vapo. Will continue to try to get a hold of family member. POA number goes to machine Third Eval Re-Evaluation Time: 10:10 Change: Unchanged Comment: Tried calling another cellphone number but it was pt's cellphone and voicemail was full. Fourth Eval Re-Evaluation Time: 10:16 Comment: Spoke with health care proxy, Aury. Discussed sending pt to [facility] with oxygen, nebs, oral abx to support MOLST directive. Aury requests pt be admitted to the hospital and have hospice evaluation. No blood work but is ok with antibiotics. Aury's phone number: [phone]. Will d/w hospitalist. Pt's Sats maintained > 92 on 3LNC Course/Dx - Course Course Of Treatment: Pt presents from [facility] with reported increased WOB this am. Pt without resp hx/diagnosis. Pt given 2 nebs and on Oxygen upon arrival - EMS states improved following neb. MOLST reviewed - no IV, No intubation - trial abx ok. Will contact HCP to review and discuss. pt withelevated BP - was not given am meds - will give now (lisinopril, metoprolol , dig). Will check CXR, influenza - Diagnoses Provider Diagnoses: Pneumonia - Physician Notifications Discussed Care of Patient With: Brianna Salazar Time Discussed With Above Provider: 10:26 Instructed by Provider To: Other - Spoke with Dr. Salazar, hospitalist, who will speak with health care proxy and see the pt in the ED. Discharge - Sign-Out/Discharge Documenting (check all that apply): Patient Departure All imaging exams completed and their final reports reviewed: Yes Patient Received Moderate/Deep Sedation with Procedure: No - Discharge Plan Condition: Fair Disposition: ADMITTED TO [facility] - Billing Disposition and Condition Condition: FAIR Disposition: Admitted to [facility] - Attestation Statements Document Initiated by Scribe: Yes Documenting Scribe: Jahaira Alfaro Provider For Whom Scribe is Documenting (Include Credential): Lilliam Ortega MD Scribe Attestation: Jahaira Kenney, scribed for Lilliam Ortega MD on 08/01/18 at 1048. Scribe Documentation Reviewed: Yes Provider Attestation: The documentation as recorded by the scribeJahaira accurately reflects the service I personally performed and the decisions made by me, Lilliam Ortega MD Status of Scribe Document: Viewed
[2018-07-31] MEDS ORDERED: Metoprolol Tartrate TAB* 50 mg PO ONE (09:48)
[2018-07-31] MEDS ORDERED: Lisinopril TAB* 10 MG PO ONE (09:49)
[2018-07-31] MEDS ORDERED: Digoxin TAB* 0.125 MG PO ONE (09:50)
[2018-07-31] MEDS ORDERED: DOXYcycline CAP(*) 100 MG PO ONE (10:29)
[2018-07-31 10:57] LABS: Influenza A Molecular NEGATIVE (Negative); Influenza B Molecular NEGATIVE (Negative)
[2018-07-31] MEDS ORDERED: Acetaminophen TAB* 325 MG PO PRN (12:06)
[2018-07-31] MEDS ORDERED: Albuterol 2.5 MG/3 ML NEB.SOL* (0.083%) INH PRN (12:06)
[2018-07-31] MEDS ORDERED: Albuterol/Ipratropium NEB.SOL* Albuterol 2.5 MG/Ipratropium 0.5 MG 3 ML INH PRN (12:09)
[2018-07-31] MEDS ORDERED: cefTRIAXone(*) 1 GM in NS 0.9% 50 ML* 50 ML IVPB ONE (12:24)
[2018-07-31] MEDS ORDERED: Furosemide IV* 10 MG/ML 10 ML VIAL (100 MG) IV ONE (12:35)
[2018-07-31] MEDS ORDERED: methylPREDNISolone 125 MG* 2 ML VIAL IV ONE (12:42)
[2018-07-31] MEDS ORDERED: cefTRIAXone(*) 1 GM ADVAN/BAG ONE (12:52)
[2018-07-31 13:05] LABS: INR 1.63 (0.77-1.02)
[2018-07-31 13:11] LABS: Hematocrit 30 % (36-46); Hemoglobin 8.8 g/dL (14.0-18.0); Mean Corpuscular HGB Conc 29 g/dL (31-36); Mean Corpuscular Hemoglobin 19 pg (27-31); Mean Corpuscular Volume 66 fL (80-94); Platelet Count 268 10^3/uL (150-450); Red Blood Count 4.55 10^6 /uL (4.18-5.48); Red Cell Distribution Width 18 % (10.5-15); White Blood Count 6.3 10^3/uL (3.5-10.8)
[2018-07-31 13:16] LABS: BUN/Creatinine Ratio 18.1 (8-20); C Reactive Protein 15.03 mg/L (<8.01); Calcium 8.7 mg/dL (8.6-10.3); EGFR African American 92.7 (>60); EGFR Non-African American 76.6 (>60); Potassium 4.1 mmol/L (3.5-5.0)
[2018-07-31 13:35] LABS: ABS Basophils 0.1 10^3/ul (0-0.2); ABS Eosinophils 0 10^3/ul (0-0.6); ABS Lymphocytes 0.5 10^3/ul (1.0-4.8); ABS Monocytes 0.8 10^3/ul (0-0.8); ABS Neutrophils 4.9 10^3/ul (1.5-7.7); ABS Nucleated RBC 0 10^3/ul; Eosinophil % 0.1 %; Lymphocyte % 8.1 %; Nucleated Red Blood Cells % 0.1
[2018-07-31 13:43] LABS: Acanthocytes 1+; Microcytosis 2+
[2018-07-31 13:44] LABS: Schistocytes 1+
[2018-07-31 14:17] LABS: Urine Appearance Clear; Urine Bacteria Absent (Absent); Urine Bilirubin Negative (Negative); Urine Blood Negative (Negative); Urine Color Yellow; Urine Glucose Negative (Negative); Urine Ketones Negative (Negative); Urine Nitrite Negative (Negative); Urine Protein Negative (Negative); Urine Red Blood Cell Trace(0-2/hpf) (Absent); Urine Specific Gravity 1.009 (1.010-1.030); Urine Squamous Epithelial Cell Present (Absent); Urine Urobilinogen Negative (Negative); Urine White Blood Cell 1+(6-10/hpf) (Absent)
[2018-07-31] MEDS: Azithromycin IV(*) 500 MG in NS 0.9% 250 ML* 250 ML IVPB SCH (15:47)
[2018-07-31] MEDS: hydrALAZINE IV* 20 MG/ML VIAL IV SLOW PU PRN (15:47)
--- NOTE | 2018-07-31 16:26 | HP ---
CC: Dr. Ashton; [facility] * HISTORY AND PHYSICAL: DATE OF ADMISSION: 07/31/18 PROVIDER: Angela Boogie NP PRIMARY CARE PROVIDER: Dr. Ashton. ATTENDING PHYSICIAN WHILE IN THE HOSPITAL: Dr. Brianna Salazar * (dictated by Angela Boogie NP). CHIEF COMPLAINT: Shortness of breath. HISTORY OF PRESENT ILLNESS: Mr. Lara is an 83-year-old male with a past medical history significant for atrial fibrillation, hypertension, CVA, severe dementia, hyperlipidemia, rosacea, and GERD, who presented to the emergency room per assisted records with the complaints of shortness of breath. The patient has baseline dementia and is unable to actively participate in questioning or able to report history of his present illness. The history of his present illness was obtained from the emergency room records as well as the assisted records. The staff from [facility] reports that this morning he woke up with difficulty breathing. He was given DuoNebs at [facility] without much relief. EMS was called and he was transferred. A second DuoNeb was given by EMS. He was placed on supplemental oxygen. The patient was noted to be wheezing and coughing. There have been no reports of fevers. The patient has no history of lung disease and he is unable to state his date, location or situation, president, or name. The patient did present with a MOLST form that is a DNR/DNI comfort measures only. No IV. No antibiotics. His healthcare proxy is Aury Caro. While in the emergency room, routine lab work was obtained and the patient did agree to have an IV placed in his arm. He will be given IV antibiotics for treatment of his pneumonia. Again, the patient is unable to actively participate in review of systems. He voices no complaints. He does appear moderately short of breath with audible expiratory wheezes heard from a door. He is alert. He does respond to his name. Given the significance of his shortness of breath, we were asked to see and evaluate him for admission. PAST MEDICAL HISTORY: Significant for: 1. AFib. 2. Hypertension. 3. CVA. 4. Dementia. 5. Hyperlipidemia. 6. Rosacea. 7. GERD. PAST SURGICAL HISTORY: 1. Cleft palate surgery. 2. Colovesicular fistula. 3. Left eye surgery. This was obtained from his medical records. HOME MEDICATIONS: 1. Xarelto 20 mg p.o. daily. 2. Doxazosin 4 mg p.o. at bedtime. 3. Metoprolol tartrate 50 mg p.o. b.i.d. 4. Digoxin 0.0625 mg p.o. daily. 5. Potassium chloride 20 mEq p.o. daily. 6. Donepezil, Aricept 10 mg p.o. daily. 7. Guaifenesin 10 mL p.o. q.6 hours as needed for cough. 8. Acetaminophen 650 mg p.o. q.4 hours as needed for pain. 9. Albuterol nebulizer, DuoNeb 1 inhaled q.4 hours as needed. 10. Simvastatin 20 mg p.o. daily. 11. Sennosides 8.6 mg p.o. daily. 12. Magnesium oxide 400 mg p.o. daily. 13. Lisinopril 20 mg p.o. daily. 14. Famotidine 20 mg p.o. daily. ALLERGIES: No known drug allergies. FAMILY HISTORY: Unobtainable. SOCIAL HISTORY: According to old records, the patient quit smoking approximately 50 years ago. He is and currently lives at [facility]. Surrogate decision maker is Aury and her phone number is [phone]. Secondary surrogate decision maker is Korina Dejesus, his niece, and her phone number is [phone]. REVIEW OF SYSTEMS: Review of systems was unobtainable. When chest was palpated , the patient reports no chest pain. When the abdomen was palpated, the patient reported no abdominal pain. The patient was unable to actively participate in any further questioning due to his profound dementia. PHYSICAL EXAMINATION GENERAL: At this time, Mr. Lara is an 83-year-old male. He is resting on the stretcher in the emergency room. He appears to be in moderate respiratory distress. He is alert to verbal. He does respond to his name. VITAL SIGNS: Blood pressure 194/105, heart rate is 90, respirations are 14, O2 saturation 99%, temperature was 98.4. HEENT: Head is atraumatic, normocephalic. Eyes: EOMs are intact. Sclerae anicteric and not pale. Eyelids noted to have a small amount of edema. Oral mucosa appeared to be dry. No oropharyngeal erythema. NECK: Supple. LUNGS: With audible expiratory wheezes throughout bilaterally and rales noted in the bases bilaterally fpc up. CARDIAC: S1, S2. Regular rate and rhythm. No murmurs, rubs, or gallops. ABDOMEN: Soft and nontender. Bowel sounds are present x4. EXTREMITIES: Pedal pulses are +1. He is able to move all 4 extremities with 4/ 5 strength. He does have 2 to 3+ pitting edema noted to bilateral lower extremities up to his mid thigh. NEUROLOGIC: He is alert. He is confused to place, time, and situation. His speech is clear. There are no gross focal deficits. SKIN: Intact. DIAGNOSTIC STUDIES/LAB DATA: WBCs are 6.3, RBCs 4.55, hemoglobin 8.8, hematocrit 30, platelet count 268. INR was 1.63. Sodium 141, potassium 4.1, chloride 105, carbon dioxide was 29, anion gap was 7, BUN was 17, creatinine 0.94, lactic acid was 1.6, glucose 121. C-reactive protein was 15.03 and BNP was 865. Urine was yellow, clear, pH was 6.0, specific gravity 1.009. Urine protein, ketones, blood, nitrites, bilirubin, urobilinogen were all negative. Urine leukocyte esterase was trace, wbc's were 1+, rbc's were trace, squamous epithelial cells were present, bacteria was absent, glucose was negative. Flu A and B were both negative. Chest x-ray, radiologist's impression: Low lung volumes, patchy right basilar atelectasis versus consolidation. EKG is currently pending. ASSESSMENT AND PLAN: Mr. Lara is an 83-year-old male patient who currently resides at [facility] with profound dementia, who was brought to the emergency room due to respiratory distress. He will be admitted under observation for: 1. Shortness of breath. I suspect that his shortness of breath is related to underlying right lower lobe pneumonia. The patient does have low-grade temperature at a 100.0. He is tachypneic for the respiratory rate of 24. He is able to maintain O2 saturation at 99% on 3 L. He did have a set of blood cultures. He had a urine for Legionella and Strep pneumoniae. I will start him on azithromycin and ceftriaxone. I also suspect that he has some underlying diastolic congestive heart failure. As the patient does have 2 to 3 + pitting edema from bilateral mid thighs to his feet, that is also adding to a component of his shortness of breath. We will continue with nebulizers as needed. I will also give him a dose of Lasix 20 mg IV. 2. Hypertension. The patient is hypertensive on admission to the emergency room. He did not receive his medications today. His blood pressure has ranged from 201/107 to 194/105. We will continue his home medications of lisinopril 20 mg p.o. daily, metoprolol 50 mg p.o. b.i.d. I will add hydralazine 5 mg IV q.6 hours as needed for a systolic blood pressure greater than 180. 3. Atrial fibrillation. We will continue on digoxin as previously prescribed and Xarelto 20 mg p.o. daily. 4. Hyperlipidemia. He will continue on his atorvastatin 10 mg p.o. daily. 5. Dementia. He will continue on Aricept and we will give supportive care. 6. FEN: He can have a heart healthy caffeine okay diet. 7. Code status: He is a DNR/DNI, comfort measures only. I will consult Palliative Care to see if the patient is hospice eligible as the patient according to his current MOLST form does not want any heroic measures and wishes to be comfort care. TIME SPENT: Time spent on this admission was 60 minutes, greater than half that time was spent [id number] with the patient obtaining my history and physical, the other half of the time was spent going over my plan of care and implementing my plan of care. I have discussed with my attending, Dr. Brianna Salazar; she is in agreement with my plan. ANGELA BOOGIE, TRANSPORTATION MODELER [id number]/[facility] #: [id number] RUTH
[2018-07-31] MEDS: Metoprolol Tartrate TAB* 50 mg PO SCH (20:34)
[2018-07-31] MEDS ORDERED: Doxazosin TAB* 2 MG PO SCH (21:00)
[2018-08-01] MEDS ORDERED: Atorvastatin* 10 MG TAB PO SCH (09:00)
[2018-08-01] MEDS ORDERED: Lisinopril TAB* 10 MG PO SCH (09:00)
[2018-08-01] MEDS: Metoprolol Tartrate TAB* 50 mg PO SCH (10:53)
[2018-08-01] MEDS: Senna TAB PO SCH (10:53)
[2018-08-01] MEDS: Potassium Chloride LIQUID* 20 MEQ PACKET PO SCH (10:53)
[2018-08-01] MEDS: Donepezil TAB* 5 MG PO SCH (10:53)
[2018-08-01] MEDS: Magnesium Oxide TAB* 400 MG PO SCH (10:53)
[2018-08-01] MEDS: Famotidine TAB* 20 MG PO SCH (10:54)
[2018-08-01] MEDS: Digoxin TAB* 0.125 MG PO SCH (10:54)
[2018-08-01] MEDS: Rivaroxaban TAB(*) 20 MG TAB PO SCH (10:54)
--- NOTE | 2018-08-01 12:53 | CONSULT ---
Palliative / Hospice Consult Ordering Provider: Angela Boogie - PCP-Poli - Subjective Code Status: DNR Advance Directives Location: In Chart MOLST Part A Completed: Yes - on chart MOLST Part E Completed:: Yes - on chart - History or Present Illness History or Present Illness: 83 yo male with diastolic heart failure, mild dementia and s/p L CVA resident of [facility] [place] presented to ER with SOB. Currently being treated for RLL pneumonia. PMH significant for afib, HTN, mild dementia, hyperlipidemia, rosacea , GERD and wake up stroke 03/12/18. Pt had presented to [facility] ER and was transported to [place] were he stayed for 2 months than went to rehab at [place] and eventually was transferred to [facility] [place]. Where niece said he was doing well and getting acclimated. He has been very clear about his wishes of DNR/DNI and not wanting to come back to the hospital or have medical intervention. Most of his symptoms are due to his residual stroke. Ex tob/ no drugs/ rare etoh retired from [employer]. Was living with sister in law who is his significant other. Pertinent labs H/H 8.01/10, BUN/Cr17/.94 egfr 76.6, BNP 865. CXR atelectasis vs consolidation. He was taking care of his ADl's at [facility] [place], ambulating but can't have conversations and has no memory. Lab Values: Abnormal Lab Results 07/31/18 07/31/18 07/31/18 12:49 12:49 12:49 WBC RBC Hgb Hct MCV MCH MCHC RDW Plt Count MPV Neut % (Auto) Lymph % (Auto) Rosebud % (Auto) Eos % (Auto) Baso % (Auto) Absolute Neuts (auto) Absolute Lymphs (auto) Absolute Monos (auto) Absolute Eos (auto) Absolute Basos (auto) Absolute Nucleated RBC Nucleated RBC % Hypochromasia Anisocytosis Microcytosis Elliptocytes Acanthocytes (Spur) Schistocytes Hem Pathologist Commnt INR (Anticoag Therapy) 1.63 H Sodium 141 Potassium 4.1 Chloride 105 Carbon Dioxide 29 Anion Gap 7 BUN 17 Creatinine 0.94 Est GFR ( Amer) 92.7 Est GFR (Non-Af Amer) 76.6 BUN/Creatinine Ratio 18.1 Glucose 121 H Lactic Acid 1.6 Calcium 8.7 C-Reactive Protein 15.03 H B-Natriuretic Peptide Urine Color Urine Appearance Urine pH Ur Specific Natoma Urine Protein Urine Ketones Urine Blood Urine Nitrate Urine Bilirubin Urine Urobilinogen Ur Leukocyte Esterase Urine WBC (Auto) Urine RBC (Auto) Ur Squamous Epith Cells Urine Bacteria Urine Glucose 07/31/18 07/31/18 07/31/18 12:49 12:49 13:38 WBC 6.3 RBC 4.55 Hgb 8.8 L Hct 30 L MCV 66 L MCH 19 L MCHC 29 L RDW 18 H Plt Count 268 MPV 8.0 Neut % (Auto) 78.5 Lymph % (Auto) 8.1 Rosebud % (Auto) 12.1 Eos % (Auto) 0.1 Baso % (Auto) 1.2 Absolute Neuts (auto) 4.9 Absolute Lymphs (auto) 0.5 L Absolute Monos (auto) 0.8 Absolute Eos (auto) 0 Absolute Basos (auto) 0.1 Absolute Nucleated RBC 0 Nucleated RBC % 0.1 Hypochromasia 1+ Anisocytosis 2+ Microcytosis 2+ Elliptocytes 1+ Acanthocytes (Spur) 1+ Schistocytes 1+ Hem Pathologist Commnt INR (Anticoag Therapy) Sodium Potassium Chloride Carbon Dioxide Anion Gap BUN Creatinine Est GFR ( Amer) Est GFR (Non-Af Amer) BUN/Creatinine Ratio Glucose Lactic Acid Calcium C-Reactive Protein B-Natriuretic Peptide 865 H Urine Color Yellow Urine Appearance Clear Urine pH 6.0 Ur Specific Natoma 1.009 L Urine Protein Negative Urine Ketones Negative Urine Blood Negative Urine Nitrate Negative Urine Bilirubin Negative Urine Urobilinogen Negative Ur Leukocyte Esterase Trace A Urine WBC (Auto) 1+(6-10/hpf) A Urine RBC (Auto) Trace(0-2/hpf) Ur Squamous Epith Cells Present A Urine Bacteria Absent Urine Glucose Negative Laboratory Last Values WBC 6.3 10^3/uL (3.5-10.8) 07/31/18 12:49 RBC 4.55 10^6 /uL (4.18-5.48) 07/31/18 12:49 Hgb 8.8 g/dL (14.0-18.0) L 07/31/18 12:49 Hct 30 % (36-46) L 07/31/18 12:49 MCV 66 fL (80-94) L 07/31/18 12:49 MCH 19 pg (27-31) L 07/31/18 12:49 MCHC 29 g/dL (31-36) L 07/31/18 12:49 RDW 18 % (10.5-15) H 07/31/18 12:49 Plt Count 268 10^3/uL (150-450) 07/31/18 12:49 MPV 8.0 fL (7.4-10.4) 07/31/18 12:49 Neut % (Auto) 78.5 % 07/31/18 12:49 Lymph % (Auto) 8.1 % 07/31/18 12:49 Rosebud % (Auto) 12.1 % 07/31/18 12:49 Eos % (Auto) 0.1 % 07/31/18 12:49 Baso % (Auto) 1.2 % 07/31/18 12:49 Absolute Neuts (auto) 4.9 10^3/ul (1.5-7.7) 07/31/18 12:49 Absolute Lymphs (auto) 0.5 10^3/ul (1.0-4.8) L 07/31/18 12:49 Absolute Monos (auto) 0.8 10^3/ul (0-0.8) 07/31/18 12:49 Absolute Eos (auto) 0 10^3/ul (0-0.6) 07/31/18 12:49 Absolute Basos (auto) 0.1 10^3/ul (0-0.2) 07/31/18 12:49 Absolute Nucleated RBC 0 10^3/ul 07/31/18 12:49 Nucleated RBC % 0.1 07/31/18 12:49 Hypochromasia 1+ 07/31/18 12:49 Anisocytosis 2+ 07/31/18 12:49 Microcytosis 2+ 07/31/18 12:49 Elliptocytes 1+ 07/31/18 12:49 Acanthocytes (Spur) 1+ 07/31/18 12:49 Schistocytes 1+ 07/31/18 12:49 Hem Pathologist Commnt 07/31/18 12:49 INR (Anticoag Therapy) 1.63 (0.77-1.02) H 07/31/18 12:49 Sodium 141 mmol/L (135-145) 07/31/18 12:49 Potassium 4.1 mmol/L (3.5-5.0) 07/31/18 12:49 Chloride 105 mmol/L (101-111) 07/31/18 12:49 Carbon Dioxide 29 mmol/L (22-32) 07/31/18 12:49 Anion Gap 7 mmol/L (2-11) 07/31/18 12:49 BUN 17 mg/dL (6-24) 07/31/18 12:49 Creatinine 0.94 mg/dL (0.67-1.17) 07/31/18 12:49 Est GFR ( Amer) 92.7 (>60) 07/31/18 12:49 Est GFR (Non-Af Amer) 76.6 (>60) 07/31/18 12:49 BUN/Creatinine Ratio 18.1 (8-20) 07/31/18 12:49 Glucose 121 mg/dL (70-100) H 07/31/18 12:49 Lactic Acid 1.6 mmol/L (0.5-2.0) 07/31/18 12:49 Calcium 8.7 mg/dL (8.6-10.3) 07/31/18 12:49 C-Reactive Protein 15.03 mg/L (<8.01) H 07/31/18 12:49 B-Natriuretic Peptide 865 pg/mL (<=100) H 07/31/18 12:49 Urine Color Yellow 07/31/18 13:38 Urine Appearance Clear 07/31/18 13:38 Urine pH 6.0 (5-9) 07/31/18 13:38 Ur Specific Natoma 1.009 (1.010-1.030) L 07/31/18 13:38 Urine Protein Negative (Negative) 07/31/18 13:38 Urine Ketones Negative (Negative) 07/31/18 13:38 Urine Blood Negative (Negative) 07/31/18 13:38 Urine Nitrate Negative (Negative) 07/31/18 13:38 Urine Bilirubin Negative (Negative) 07/31/18 13:38 Urine Urobilinogen Negative (Negative) 07/31/18 13:38 Ur Leukocyte Esterase Trace (Negative) A 07/31/18 13:38 Urine WBC (Auto) 1+(6-10/hpf) (Absent) A 07/31/18 13:38 Urine RBC (Auto) Trace(0-2/hpf) (Absent) 07/31/18 13:38 Ur Squamous Epith Cells Present (Absent) A 07/31/18 13:38 Urine Bacteria Absent (Absent) 07/31/18 13:38 Urine Glucose Negative (Negative) 07/31/18 13:38 Influenza A (Rapid) Negative (Negative) 07/31/18 10:45 Influenza B (Rapid) Negative (Negative) 07/31/18 10:45 - Objective Active Medications: Acetaminophen (Tylenol Tab*) 650 mg PO Q4H PRN PRN Reason: FEVER/PAIN Albuterol (Ventolin 2.5 Mg/3 Ml Neb.Michelle*) 2.5 mg INH [id number] AWAKE PRN PRN Reason: sob/wheezing Albuterol/Ipratropium (Duoneb (Albuterol 2.5 Mg/Ipratropium 0.5 Mg)) 1 neb INH Q4H PRN PRN Reason: WHEEZING Atorvastatin Calcium (Lipitor*) 10 mg PO DAILY [facility] Last Admin: 08/01/18 10:54 Dose: 10 mg Digoxin (Lanoxin Tab*) 0.0625 mg PO DAILY [facility] Last Admin: 08/01/18 10:54 Dose: 0.0625 mg Donepezil HCl (Aricept Tab*) 10 mg PO DAILY [facility] Last Admin: 08/01/18 10:53 Dose: 10 mg Doxazosin Mesylate (Cardura Tab*) 4 mg PO BEDTIME [facility] Last Admin: 07/31/18 20:34 Dose: 4 mg Famotidine (Pepcid Tab*) 20 mg PO DAILY [facility] Last Admin: 08/01/18 10:54 Dose: 20 mg Furosemide (Lasix Tab*) 40 mg PO DAILY [facility] Hydralazine HCl (Apresoline Iv*) 5 mg IV SLOW PU Q6H PRN PRN Reason: Systolic Bp Greater Than:180 Last Admin: 07/31/18 15:47 Dose: 5 mg Ceftriaxone Sodium 1 gm/ (Sodium Chloride) 50 mls @ 200 mls/hr IVPB Q24H [facility] Azithromycin 500 mg/ Sodium (Chloride) 250 mls @ 250 mls/hr IVPB Q24H [facility] Last Admin: 07/31/18 15:47 Dose: 250 mls/hr Lisinopril (Prinivil Tab*) 20 mg PO DAILY [facility] Last Admin: 08/01/18 10:54 Dose: 20 mg Magnesium Oxide (Magox 400 Tab*) 400 mg PO DAILY [facility] Last Admin: 08/01/18 10:53 Dose: 400 mg Metoprolol Tartrate (Lopressor Tab*) 50 mg PO BID [facility] Last Admin: 08/01/18 10:53 Dose: 50 mg Potassium Chloride (Klor-Con Liquid*) 20 meq PO DAILY [facility] Last Admin: 08/01/18 10:53 Dose: 20 meq Rivaroxaban (Xarelto(*)) 20 mg PO DAILY [facility] Last Admin: 08/01/18 10:54 Dose: 20 mg Senna (Senokot Tab*) 1 tab PO DAILY [facility] Last Admin: 08/01/18 10:53 Dose: 1 tab Vital Signs: Vital Signs: Temp Pulse Resp BP Pulse Ox 97.5 F 81 18 147/78 100 08/01/18 11:19 08/01/18 11:19 08/01/18 11:19 08/01/18 11:19 08/01/18 11:19 Patient Weight: Weight 74.752 kg Intake and Output: Intake & Output 07/30/18 07/31/18 08/01/18 08/02/18 06:59 06:59 06:59 06:59 Intake Total 530 360 Output Total 400 Balance 130 360 Weight 74.752 kg Intake: IV Fluids 60 IVPB 270 Oral 200 360 Output: Urine 400 Other: Estimated Void Medium Medium # Bowel Movements 1 Estimated Stool Amount Medium # Voids 4 2 ADLs: Meal Record Start: 07/31/18 13: 45 Freq: DAILY@0900,1400,1800 Status: Active Protocol: Created 07/31/18 13:45 System (Rec: 07/31/18 13:45 System MED-C15) Document 07/31/18 18:00 [id number] (Rec: 07/31/18 18:55 [id number] MED-C13) Document 08/01/18 09:00 [id number] (Rec: 08/01/18 09:37 [id number] MED-C11) Intake and Output Start: 07/31/18 09: 17 Freq: Status: Active Protocol: Created 07/31/18 09:17 System (Rec: 07/31/18 09:17 System [id number]) Document 07/31/18 13:41 [id number] (Rec: 07/31/18 13:41 [id number] ED-C31) Intake and Output Start: 07/31/18 13: 45 Freq: DAILY@0600,1400,2200 Status: Active Protocol: Created 07/31/18 13:45 System (Rec: 07/31/18 13:45 System MED-C15) Document 07/31/18 22:00 [id number] (Rec: 07/31/18 22:47 [id number] MED-C15) Document 08/01/18 05:23 [id number] (Rec: 08/01/18 05:23 [id number] MED-C15) Head: Normal Cardiovascular: NL Sounds; No Murmurs; No JVD Respiratory: - - wheezes through out Extremities: - - 2+ pitting edema - Assessment Assessment: 83 yo male with diastolic heart failure , mild dementia and s/p L CVA (04/12/18 ) presents with SOB - Plan Consult Plan (MU): Hospice Plan: Long discussion with niece who is his HCP(Aury Caro) POA. She is interested in having a hospice evaluation for her uncle based on his advanced directive. He doesn't want to keep coming back to the hospital or have a lot of medical interventions. His eligibility for hospice would be his stroke(04/12/18) residual deficits, diastolic heart failure and afib. Spoke with niece and she didn't want a neurology evaluation to clarify his symptoms. She does want him to go back to [facility] [place] and was hoping he would be accepted by hospice. I did explain that he has to return to [facility] [place] before hospice can evaluate him, but we will send a referral now to hospice so they can gather relevant information. KPS 60%, PPS 60% - Time On Unit Date of Evaluation: 08/01/18 Hospice Consult Time in: 10:30 Hospice Consult Time Out: 12:00 Hospice Consult Time Total: 90 > 50% of Time Spend In Counseling or Coordinating Care: Yes
[2018-08-01] MEDS ORDERED: cefTRIAXone(*) 1 GM in NS 0.9% 50 ML* 50 ML IVPB SCH (13:00)
[2018-08-01] MEDS: Furosemide TAB* 40 MG PO SCH (13:12)
[2018-08-01] MEDS: Azithromycin IV(*) 500 MG in NS 0.9% 250 ML* 250 ML IVPB SCH (14:37)
--- NOTE | 2018-08-01 14:46 | PN ---
Subjective Interval History: Seen by palliative care who spoke to eloy Macdonald (HCP/POA) - both mutually agreed to refer back to hospice ([facility]) given patient's previously expressed wishes. Pt with good UOP to furosemide IV in ER yesterday. Likely has HFpEF. Will switch to PO furosemide. Objective Active Medications: Acetaminophen (Tylenol Tab*) 650 mg PO Q4H PRN PRN Reason: FEVER/PAIN Albuterol (Ventolin 2.5 Mg/3 Ml Neb.Michelle*) 2.5 mg INH [id number] AWAKE PRN PRN Reason: sob/wheezing Albuterol/Ipratropium (Duoneb (Albuterol 2.5 Mg/Ipratropium 0.5 Mg)) 1 neb INH Q4H PRN PRN Reason: WHEEZING Digoxin (Lanoxin Tab*) 0.0625 mg PO DAILY [facility] Last Admin: 08/01/18 10:54 Dose: 0.0625 mg Donepezil HCl (Aricept Tab*) 10 mg PO DAILY [facility] Last Admin: 08/01/18 10:53 Dose: 10 mg Famotidine (Pepcid Tab*) 20 mg PO DAILY [facility] Last Admin: 08/01/18 10:54 Dose: 20 mg Furosemide (Lasix Tab*) 40 mg PO DAILY [facility] Last Admin: 08/01/18 13:12 Dose: 40 mg Hydralazine HCl (Apresoline Iv*) 5 mg IV SLOW PU Q6H PRN PRN Reason: Systolic Bp Greater Than:180 Last Admin: 07/31/18 15:47 Dose: 5 mg Ceftriaxone Sodium 1 gm/ (Sodium Chloride) 50 mls @ 200 mls/hr IVPB Q24H [facility] Last Admin: 08/01/18 13:12 Dose: 200 mls/hr Azithromycin 500 mg/ Sodium (Chloride) 250 mls @ 250 mls/hr IVPB Q24H [facility] Last Admin: 08/01/18 14:37 Dose: 250 mls/hr Lisinopril (Prinivil Tab*) 20 mg PO DAILY [facility] Last Admin: 08/01/18 10:54 Dose: 20 mg Magnesium Oxide (Magox 400 Tab*) 400 mg PO DAILY [facility] Last Admin: 08/01/18 10:53 Dose: 400 mg Metoprolol Succinate (Toprol Xl Tab*) 100 mg PO BEDTIME [facility] Potassium Chloride (Klor-Con Liquid*) 20 meq PO DAILY [facility] Last Admin: 08/01/18 10:53 Dose: 20 meq Rivaroxaban (Xarelto(*)) 20 mg PO DAILY [facility] Last Admin: 08/01/18 10:54 Dose: 20 mg Senna (Senokot Tab*) 1 tab PO DAILY [facility] Last Admin: 08/01/18 10:53 Dose: 1 tab Tamsulosin HCl (Flomax Cap*) 0.4 mg PO BEDTIME [facility] Vital Signs - 8 hr 08/01/18 08/01/18 08/01/18 08:00 08:43 10:54 Temperature 97.8 F Pulse Rate 80 80 Respiratory 18 16 Rate Blood Pressure 184/80 (mmHg) O2 Sat by Pulse 99 Oximetry 08/01/18 11:19 Temperature 97.5 F Pulse Rate 81 Respiratory 18 Rate Blood Pressure 147/78 (mmHg) O2 Sat by Pulse 100 Oximetry Oxygen Devices in Use Now: Nasal Cannula Appearance: chronically ill appearing but not in acute distress Ears/Nose/Mouth/Throat: Mucous Membranes Moist Respiratory: - - audible wheeze, diffuse rhonchi Extremities: - - 2+ edema up to thighs Result Diagrams: 07/31/18 12:49 07/31/18 12:49 Microbiology and Other Data: Microbiology 07/31/18 12:49 Aerobic Blood Culture - Preliminary Blood Venous No Growth Day 1 Anaerobic Blood Culture - Preliminary No Growth Day 1 07/31/18 13:38 Urine Culture - Final Urine 07/31/18 13:38 Streptococcus pneumoniae Ag Screen - Final Urine Negative S. pneumo Antigen 07/31/18 13:38 Legionella Urinary Antigen - Final Urine Negative Legionella Antigen 07/31/18 10:27 Nasal Screen MRSA (PCR) - Final Nasal Mrsa Not Detected 07/31/18 10:27 Influenza Types A,B Antigen - Final Nasal Specimen received for Influenza A/B Molecular testing Assess/Plan/Problems-Billing Assessment: 83M with dementia, afib on AC, CVA, HTN, HFpEF, h/o lower GI bleed (likely diverticular), presents from [facility] with SOB, found with low-grade temp and consolidation on CXR. Also noted to be volume overloaded, with concern for HFpEF. Pt's preference has been to avoid hospitalization and invasive medical intervention, although he did agree to IV antibiotics while in ER. - Patient Problems (1) Pneumonia Comment: Pt with hypoxia from PNA, also likely with volume overload. - cont empiric CTX/azithro -> can switch to PO tomorrow if going back to [place] - f/u cultures - cont nebs prn SOB (2) Heart failure due to high blood pressure Comment: New diagnosis for patient, but most likely. Further testing with echo not consistent with prior stated goals. Treatment with furosemide is in line with goals given main goal of symptom relief. - s/p furosemide IV with good UOP - start on furosemide 40mg PO daily - Is & Os, daily weights (3) Atrial fibrillation Comment: - switch metoprolol tartrate to long acting - on Xarelto for AC - unclear when this was started; pt with significant history of bleeding and now has stable Hgb 8 with significant microcytosis - will discuss stopping this medication with his niece (4) HTN (hypertension) (5) GI bleed Comment: H/o diverticular bleed. Again with microcytic anemia - stable since labs checked last month. - will consider stopping AC (6) DNR (do not resuscitate) Comment: will have hospice referral
[2018-08-01] MEDS: hydrALAZINE IV* 20 MG/ML VIAL IV SLOW PU PRN (17:20)
[2018-08-01] MEDS ORDERED: Metoprolol Succinate XL TAB* 100 MG PO SCH (21:00)
[2018-08-01] MEDS ORDERED: Tamsulosin CAP* 0.4 MG PO SCH (21:00)
[2018-08-02] MEDS: hydrALAZINE IV* 20 MG/ML VIAL IV SLOW PU PRN (02:40)
[2018-08-02 07:08] LABS: Hematocrit 25 % (36-46); Hemoglobin 7.6 g/dL (14.0-18.0); Mean Corpuscular HGB Conc 31 g/dL (31-36); Mean Corpuscular Hemoglobin 20 pg (27-31); Mean Corpuscular Volume 64 fL (80-94); Platelet Count 239 10^3/uL (150-450); Red Blood Count 3.88 10^6 /uL (4.18-5.48); Red Cell Distribution Width 18 % (10.5-15); White Blood Count 7.4 10^3/uL (3.5-10.8)
[2018-08-02 07:29] LABS: BUN/Creatinine Ratio 25.4 (8-20); Calcium 8.1 mg/dL (8.6-10.3); EGFR African American 147.2 (>60); EGFR Non-African American 121.6 (>60); Magnesium 1.7 mg/dL (1.9-2.7); Potassium 2.9 mmol/L (3.5-5.0)
[2018-08-02] MEDS ORDERED: Magnesium Sulfate 2 GM IV* 2 GM/50 ML BAG IVPB ONE (07:57)
[2018-08-02] MEDS ORDERED: Ferric Gluconate IV* 125 MG in NS 0.9% 100 ML* 100 ML IVPB ONE (08:00)
[2018-08-02] MEDS ORDERED: Azithromycin TAB* 250 MG PO SCH (09:00)
[2018-08-02] MEDS ORDERED: Lisinopril TAB* 10 MG PO SCH (09:00)
[2018-08-02] MEDS ORDERED: Cefdinir cap* 300 MG CAP PO SCH (09:00)
[2018-08-02] MEDS: Digoxin TAB* 0.125 MG PO SCH (09:16)
[2018-08-02] MEDS: Furosemide TAB* 40 MG PO SCH (09:17)
[2018-08-02] MEDS: Donepezil TAB* 5 MG PO SCH (09:17)
[2018-08-02] MEDS: Potassium Chloride LIQUID* 20 MEQ PACKET PO SCH (09:18)
[2018-08-02] MEDS: Magnesium Oxide TAB* 400 MG PO SCH (09:18)
[2018-08-02] MEDS: Senna TAB PO SCH (09:18)
[2018-08-02] MEDS: Famotidine TAB* 20 MG PO SCH (09:18)
[2018-08-02] MEDS: Rivaroxaban TAB(*) 20 MG TAB PO SCH (09:18)
[2018-08-02] MEDS: KCL 20 MEQ/100 ML IVPREMIX* 20 MEQ/100 ML BAG IV SCH ×2 (11:10→13:11)
[2018-08-02 11:22] VITALS: BP 150/63
--- NOTE | 2018-08-02 14:35 | DS ---
CC: Dr. Ashton; Dr. Jessica Cai DATE OF ADMISSION: 07/31/2018. DATE OF DISCHARGE: 08/02/2018. PRIMARY CARE PHYSICIAN: Dr Ashton CONSULTS: Palliative Care, Dr. Jessica Cai. DISPOSITION: To [facility]. CONDITION: Improved. PRIMARY DIAGNOSIS: Pneumonia. SECONDARY DIAGNOSES: Heart failure, dementia, hypertension. HISTORY OF PRESENT ILLNESS: This is an 83-year-old man with a past medical history of atrial fibrillation, hypertension, CVA's, severe dementia, rosacea, and GERD presenting to the emergency room with shortness of breath. Most information taken from [facility] records as the patient is unable to articulate his symptoms. Seems on the morning of presentation, staff at [facility] reported he woke up with difficulty breathing. He was given DuoNebs at [facility] without relief, so EMS was called and he was transferred to [facility]. HOSPITAL COURSE: In the emergency room, he was given DuoNebs and supplemental oxygen. He was noted to have a cough without fever. It was noted that his MOLST form requested not to be brought to the hospital or be given IV medications or antibiotics; however, on conversation with the patient in the emergency room, he did accept an IV and antibiotics for the hospitalization. His chest x-ray came back with patchy right basilar atelectasis versus consolidation, so he was started on antibiotics for pneumonia. He was also noted to be grossly volume overloaded with 2+ pitting edema up to his thighs, most concerning for HFpEF given history of HTN, so he was given one dose of Furosemide IV and he was admitted to Medicine. After one day of diuresis and IV antibiotics, his symptoms significantly improved. It was noted that his hemoglobin was 8, which is below his prior baseline. Sometime since his last admission to [facility], he was started on anticoagulation for atrial fibrillation. He was noted to have brown stool throughout admission, without emesis or any other concern for active bleed. Given his high fall risk and his history of significant diverticular bleeding, decision was made to stop anticoagulation as the patient is a much higher bleed risk given frailty, risk of falls, and known GI bleed and his hemoglobin is already quite low. Preventing significant anemia would improve daily functioning and symptoms to keep patient comfortable. Decision was also made to maintain on diuretics as these would treat the patient's symptoms of dyspnea and make him more comfortable. He was switched to oral antibiotics. His blood pressures proved difficult to control throughout hospitalization, but he was optimized by the day of discharge. On the day of discharge, the patient denied all symptoms. He specifically nodded when asked if he is able to breath okay and walk around the floor. A ten point of review of systems was otherwise negative. PHYSICAL EXAMINATION: General: chronically-ill appearing man, sitting in a chair next to the bed eating breakfast, able to speak in full sentences without accessory muscle use. Vital Signs: Afebrile, heart rate 70s, blood pressure 150 /63, saturation 96 percent on room air. Heart: Systolic murmur, regular rate and rhythm. Lungs: Bibasilar crackles improved, otherwise clear to auscultation , no wheeze. Abdomen: Soft, nontender, nondistended. Lower extremities: 1+ pitting edema to ankle significantly improved from admission. DISCHARGE PLAN: The patient is to return to [facility] and while there will have hospice referral. If it is in line with the patient's goals, he should have his BMP monitored given newly on diuretics. However, the patient is also being discharge on home oral potassium and if it is not his wish to continue with lab draws, then these will be discontinued. DISCHARGE MEDICATIONS: 1. Cefdinir 300 mg p.o. twice a day for 4 days. 2. Azithromycin 250 mg p.o. daily for 2 days. 3. Furosemide 20 mg PO daily. 4. Lisinopril 40 mg nightly 5. Metoprolol Succinate 100 mg nightly 6. Tamsulosin 0.4 mg nightly 7. Famotidine 20 mg daily. 8. Magnesium Oxide 400 mg daily. 9. Nebulizers Albuterol/Ipratropium one inhalation q.4 as needed for shortness of breath. 10. Acetaminophen 650 p.o. every 4 hours as needed for pain. 11. Donepezil 10 mg daily. 12. Potassium 20 mEq p.o. daily. 13. Digoxin 0.0625 mg daily. TIME SPENT: Approximately 60 minutes were spent on the discharge of this patient, more than half of which was spent with care coordination at bedside for interview and exam. [id number]/[facility] #: [id number] RUTH
[2018-08-02 14:59] LABS: BUN/Creatinine Ratio 23.9 (8-20); Calcium 7.9 mg/dL (8.6-10.3); EGFR African American 137.1 (>60); EGFR Non-African American 113.3 (>60); Potassium 3.6 mmol/L (3.5-5.0)
== END 2018-08-02 16:20 | DRG 193 ==
LOC: ED 09:00 → MED 12:06 → OBSVTOIN 08-01 15:39 → MED 08-01 16:39
PROVIDERS: ADMIT Internal Medicine; ATTEND Internal Medicine
DX: J18.1 Lobar pneumonia, unspecified organism (principal); I50.31 Acute diastolic (congestive) heart failure; I11.0 Hypertensive heart disease with heart failure; E78.00 Pure hypercholesterolemia, unspecified; K57.90 Diverticulosis of intestine, part unspecified, without perforation or abscess without bleeding; M19.041 Primary osteoarthritis, right hand; H26.9 Unspecified cataract; H91.90 Unspecified hearing loss, unspecified ear; I48.91 Unspecified atrial fibrillation; E78.5 Hyperlipidemia, unspecified; D50.9 Iron deficiency anemia, unspecified; L71.9 Rosacea, unspecified; F03.90 Unspecified dementia, unspecified severity, without behavioral disturbance, psychotic disturbance, mood disturbance, and anxiety; K21.9 Gastro-esophageal reflux disease without esophagitis; Z51.5 Encounter for palliative care; Z66 Do not resuscitate; Z86.73 Personal history of transient ischemic attack (TIA), and cerebral infarction without residual deficits; Z86.14 Personal history of Methicillin resistant Staphylococcus aureus infection; Z87.891 Personal history of nicotine dependence; Z72.89 Other problems related to lifestyle; Z97.4 Presence of external hearing-aid
CPT/HCPCS: 36415; 71045; 80048; 81003; 81015; 83605; 83735; 83880; 85025; 85027; 85060; 85610; 86140; 87040; 87086; 87641; 87899; 99285; A9270-GY; G0378; J0360; J0456; J0696; J1940; J2916; J2930; J3475; J3480

== ENCOUNTER 2018-12-11 08:17 | Emergency (ER) | payer MEDICARE ==
--- NOTE | 2018-12-11 08:43 | ED ---
Neurological HPI - HPI Summary HPI Summary: Time seen by the provide 0820. 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 He called EMS for c/o SOB. In EMS his heart rate was SR and O2 sat was 100%. His medical records note his DNR, do not bring to hospital, and do not intubate instructions. Per the triage, Pt unable to answer orientation questions. Per EMS, they were called to [facility] for right sided facial droop Pt is unable to communicate at this time.He is only able to state that he hurts. His last well known was yesterday. LEVEL 5 CAVEAT. The pt is unable to provide a full history due to decreased responsiveness. He has Hx of CVA in February 2018. - History of Current Complaint Stated Complaint: DIFFICULTY BREATHING PER EMS Last Known Well Date: 12/10/18 Hx Obtained From: EMS Hx From Patient Unobtainable Due To: Other - LEVEL 5 CAVEAT. Pt has decreased responsiveness. Onset/Duration: Sudden Onset, Still Present Timing: Sudden Onset Pain Intensity: 0 - Pt states that he "hurts" Pain Scale Used: 0-10 Numeric TPA Considered: No - per MOLST pt does not want interventions - Additional Pertinent History Primary Care Physician: [id number] - Allergy/Home Medications Allergies/Adverse Reactions: Allergies Allergy/AdvReac Type Severity Reaction Status Date / Time No Known Allergies Allergy Verified 07/31/18 10:00 Home Medications: Home Medications Furosemide TAB* [Lasix TAB*] 40 mg PO DAILY 12/11/18 [History Confirmed 12/11/18 ] Lisinopril TAB* [Prinivil TAB 10 MG*] 40 mg PO BEDTIME 12/11/18 [History Confirmed 12/11/18] PMH/Surg Hx/FS Hx/Imm Hx Endocrine/Hematology History: Reports: Hx Anticoagulant Therapy Denies: Hx Diabetes, Hx Thyroid Disease Cardiovascular History: Reports: Hx Hypercholesterolemia, Hx Hypertension - WELL CONTROLLED Denies: Hx Congestive Heart Failure Respiratory History: Denies: Hx Asthma, Hx Chronic Obstructive Pulmonary Disease (COPD) GI History: Reports: Hx Diverticulosis, Hx Gastrointestinal Bleed, Other GI Disorders - current GI bleed Denies: Hx Ulcer History: Denies: Hx Renal Disease Musculoskeletal History: Reports: Hx Arthritis - RIGHT THUMB Sensory History: Reports: Hx Cataracts - BILAT, Hx Contacts or Glasses, Hx Hearing Aid - with pt , Other Sensory Impairments - upper and lower dentures Opthamlomology History: Reports: Hx Cataracts - BILAT, Hx Contacts or Glasses, Other Sensory Impairments - upper and lower dentures Neurological History: Reports: Hx CVA - February 2018 Denies: Hx Seizures - Cancer History Cancer Type, Location and Year: no - Surgical History Surgery Procedure, Year, and Place: cleft palate surgeries. TURP 2012. COLOVESICAL SURGERY 1959'S. 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 Denies: Hx Hepatitis, Hx Human Immunodeficiency Virus (HIV), Traveled Outside the [place] in Last 30 Days - Family History Known Family History: Positive: None, Unknown - pt not oriented - level 5 caveat Negative: Cardiac Disease, Other - Negative: stroke and skin CA Family History: R & n/C - Social History Alcohol Use: None Alcohol Amount: glass of wine/day Hx Substance Use: No Substance Use Type: Reports: None Hx Tobacco Use: Yes Smoking Status (MU): Former Smoker Length of Time of Smoking/Using Tobacco: 10 YRS Have You Smoked in the Last Year: No Review of Systems Constitutional: Other - Positive - unspecified pain All Other Systems Reviewed And Are Negative: No - Comments Additional Review of Systems Comments: LEVEL 5 CAVEAT. Pt has decreased responsiveness. Physical Exam - Summary Physical Exam Summary: Appearance: Chronically ill-appearing male, Well-nourished, lying in bed comfortably, lethargic, eyes open to voice Skin: Warm, dry, no obvious rash Eyes: sclera anicteric, no conjunctival pallor ENT: mucous membranes moist, pharynx appears normal Neck: Supple, nontender Respiratory: Clear to auscultation, no signs of respiratory distress Cardiovascular: Normal S1, S2. No murmurs. Normal distal pulses in tibial and radial bilaterally. Abdomen: Soft, nontender, normal active bowel sounds present Musculoskeletal: Strength/ROM Intact Neurological: pt cannot follow simple commands, loss of left nasolabial fold, LUE flaccid, pt unable to cooperate with the rest of neuro exam, GCS of 10 (see scale). Psychiatric: affect is normal, does not appear anxious or depressed Triage Information Reviewed: Yes Vital Signs On Initial Exam: Initial Vitals Temp Pulse Resp BP Pulse Ox 97.6 F 85 21 181/90 100 12/11/18 08:28 12/11/18 08:28 12/11/18 08:28 12/11/18 08:28 12/11/18 08:28 Vital Signs Reviewed: Yes Completion Of Physical Exam Limited Due To: Level 5 - pt has decreased responsiveness. - Will Coma Scale Best Eye Response: 3 - To Speech Best Motor Response: 5 - Purposeful Movement Best Verbal Response: 2 - Incomprehensible Words Coma Scale Total: 10 Diagnostics - Vital Signs Vital Signs Temp Pulse Resp BP Pulse Ox 12/11/18 08:28 97.6 F 85 21 181/90 100 - Laboratory Result Diagrams: 12/11/18 08:34 12/11/18 08:34 Lab Statement: Any lab studies that have been ordered have been reviewed, and results considered in the medical decision making process. - CT Brain CT CT Interpretation Completed By: Radiologist Summary of CT Findings: IMPRESSION: 1. SUBACUTE NONHEMORRHAGIC INFARCT OF THE RIGHT BASAL GANGLIA. 2. EVIDENCE OF REMOTE LEFT MCA TERRITORY INFARCT. ED Physician has reviewed this report. - EKG 0906 Cardiac Rate: Other Rate - Afib @ 90 bpm EKG Rhythm: Atrial Fibrillation Summary of EKG Findings: A-fib, frequent PVCs. NIH Scale - NIH Scale Level of Consciousness: Responds to Minor Stimulation Ask Patient the Month and His/Her Age: Neither Correct/Aphasic Ask Pt to Open/Close Eyes and [employer]/Release Non-Paretic Hand: One Correctly Best Gaze (Only Horizontal Eye Movement): Normal Visual Field Testing: No Visual Loss Facial Paresis-Pt to Smile & Close Eyes or Grimace Symmetry: Minor Paralysis Motor Function - Right Arm: No Drift-Holds 10 Seconds Motor Function - Left Arm: No Effort Against Era Motor Function - Right Leg: No Drift-Holds 10 Seconds Motor Function - Left Leg: No Effort Against Era Limb Ataxia-Must be out of Proportion to Weakness Present: Absent Sensory (Use Pinprick to Test Arms/Legs/Trunk/Face): Normal Best Language (Describe Picture, Name Items): Some Loss Dysarthria (Read Several Words): Unintelligible or Mute Extinction and Inattention: No Abnormality Total Score: 14 Re-Evaluation - Re-Evaluation First Eval Re-Evaluation Time: 10:20 Course/Dx - Course Course Of Treatment: This is an elderly man with multiple medical comorbities who presents with a "wakeup" stroke involving marked lethargy and left hemiparesis. His CT shows a subacute right basal ganglia infarct, c/w his presentation. His MOLST form is fairly clear that he does not wish to be taken to hospital, have artificial feeding/nutrition, or any other invasive measures so we do not have much to offer him here in the hospital. I have spoken with his HCP Maine Sandoval and explained the situation and she understands and is amenable to returning him to [facility] for comfort care. I also spoke to the covering nurse at [facility] and they will try to get hospice involved. The patient's prognosis is very poor. - Diagnoses Provider Diagnoses: CVA (cerebral vascular accident) - Physician Notifications Discussed Care Of Patient With: Maine sandoval - Healthcare proxy Time Discussed With Above Provider: 09:58 Instructed by Provider To: Other - spoke with maine sandoval, pt's healthcare proxy, concerning brain CT results positive for CVA. Maine states that no further intervetions are needed. @1001 spoke with erick. @ 1008 with Keerthi for discharge of the pt. Discharge - Sign-Out/Discharge Documenting (check all that apply): Patient Departure - discharge Patient Received Moderate/Deep Sedation with Procedure: No - Discharge Plan Condition: Guarded Disposition: [facility] FACILITY Patient Education Materials: Stroke (DC) Referrals: Gurdeep Ashton MD [Primary Care Provider] - 3 Days Additional Instructions: Results and plan discussed with HCP Maine Sandoval. RETURN TO THE EMERGENCY DEPARTMENT FOR ANY NEW OR WORSENING SYMPTOMS. - Billing Disposition and Condition Condition: GUARDED Disposition: Assisted Facility - Attestation Statements Document Initiated by Hina: Yes Documenting Scribe: Patrick Curry Provider For Whom Hina is Documenting (Include Credential): Cabrera Best MD Scribe Attestation: Patrick Kenney, scribed for Cabrera Best MD on 12/13/18 at 0430. Scribe Documentation Reviewed: Yes Provider Attestation: The documentation as recorded by the scribe, Patrick Curry accurately reflects the service I personally performed and the decisions made by me, Cabrera Best MD Status of Scribe Document: Viewed
[2018-12-11 08:44] LABS: ABS Basophils 0.1 10^3/ul (0-0.2); ABS Eosinophils 0.2 10^3/ul (0-0.6); ABS Lymphocytes 0.5 10^3/ul (1.0-4.8); ABS Monocytes 0.6 10^3/ul (0-0.8); Eosinophil % 2.3 %; Hematocrit 30 % (42-52); Hemoglobin 8.8 g/dL (14.0-18.0); Lymphocyte % 5.9 %; Mean Corpuscular HGB Conc 30 g/dL (31-36); Mean Corpuscular Hemoglobin 20 pg (27-31); Mean Corpuscular Volume 66 fL (80-94); Mean Platelet Volume 8.4 fL (7.4-10.4); Platelet Count 249 10^3/uL (150-450); Red Cell Distribution Width 18 % (10-15); White Blood Count 8.5 10^3/uL (3.5-10.8)
[2018-12-11 08:49] LABS: INR 1.19 (0.82-1.09)
[2018-12-11 09:03] LABS: Troponin I 0.04 ng/mL (<0.04)
[2018-12-11 09:18] LABS: Albumin 3.6 g/dL (3.2-5.2); Albumin/Globulin Ratio 1.8 (1-3); BUN/Creatinine Ratio 16.8 (8-20); Calcium 8.6 mg/dL (8.6-10.3); EGFR African American 85.4 (>60); EGFR Non-African American 70.5 (>60); Potassium 3.5 mmol/L (3.5-5.0); Total Bilirubin 0.8 mg/dL (0.2-1.0); Total Protein 5.6 g/dL (6.4-8.9)
[2018-12-11 09:29] LABS: Microcytosis 2+
[2018-12-11 09:30] LABS: Acanthocytes 1+
[2018-12-11 10:53] VITALS: BP 198/123
== END 2018-12-11 10:53 ==
LOC: ED 08:17
DX: I63.9 Cerebral infarction, unspecified (principal); Z79.899 Other long term (current) drug therapy; E78.00 Pure hypercholesterolemia, unspecified; I10 Essential (primary) hypertension; K57.92 Diverticulitis of intestine, part unspecified, without perforation or abscess without bleeding; Z87.891 Personal history of nicotine dependence
CPT/HCPCS: 36415; 70450; 80053; 83605; 84484; 85025; 85610; 93005; 99284